=== PATIENT | female | born 1955 | race Caucasian/White ===

== ENCOUNTER 2018-04-13 23:46 | Observation (INO) | payer OTHER, SELFPAY ==
[2018-04-13 23:47] VITALS: BP 141/90; PULSE 73; RESP 15; TEMP 36.9; BMI 35.2
[2018-04-14] VITALS (20 sets, daily range): BP systolic 114–140; BP diastolic 53–77; PULSE 61–85; RESP 13–17; TEMP 36.3–36.8; O2SAT 94–98; BMI 34.9; BMI 35.0
--- NOTE | 2018-04-14 00:26 | ED.VISSUMM ---
- ER Visit Summary Date of Service: 04/14/18 Chief Complaint: Chest pain History of Present Illness: The patient is a 63 F substernal chest pain started while driving at 10 AM. States feels like somebody punched me with a fist. Symptoms been constant the chest, intermittent sharp pain to her back. Denies dyspnea. Nausea vomiting ?2, no hematemesis. States has right arm pain, however states was pulling weeds a couple days ago. History of congestive heart failure. States she has had heart cath ?3, last one was approximately [address] Miller. However states she does not follow with him and does not want to. No history of CT or stents. She was taken off aspirin. History of hypertension and cholesterol. No diabetes. No tobacco history. No family history of CT young age. 2 recent travels in February in March to [place] in [place]. Denies any exertional dyspnea. Pain is a 4 currently. No aspirin at home. Physical Examination: General: Alert and oriented ?3, no acute distress HEENT: Normocephalic, atraumatic. Moist mucosa membranes Neck: supple, nontender. Cardiovascular: Regular rate and rhythm, no murmurs Respiratory: Normal breath sounds, symmetric, no distress Abdomen: Soft, nontender, nondistended Extremities: Nontender, no edema, pulses intact ?4 Neuro: no focal neurological deficits. Test Results: EKG sinus rate of 72, no ST or T-wave changes. Hemoglobin 14.4. Potassium 3.2. Troponin 0 0.015. D-dimer 0.028. Chest x-ray negative. Emergency Department Course and Treatment: Patient presented chest pain EKG normal. Aspirin nitro series given. Cardiac workup negative. D-dimer secondary to recent travel obtain negative. Chest x-ray negative. Given Zofran and Phenergan for nausea symptoms. Potassium was replaced. Nitro paste was placed. Repeat evaluation had minimal pain. ROMÁN risk score is a 1. Heart scores a 4. Heart cath she stated 2 years ago have on records nodes in 2012. With her symptoms however do feel with risk factors benefit from inpatient evaluation. Discuss with hospitalist Dr. Clemons who admitted to PCU for further management. Treatment Plan: [] Disposition: Admission Impression: 1. Acute chest pain 2. Hypokalemia This note was generated with [employer] software. It may contain incorrect words, spelling, and punctuation that were not noted in review of the chart prior to signing ED Disposition - Plan for ED Patient: Disposition: Acute Care Hospital [facility] Chief Complaint: Chest Pain Diagnosis: Acute chest pain, Hypokalemia Referrals: William Feldman MD [Primary Care Provider] -
[2018-04-14] MEDS: Aspirin 81 MG TAB.CHEW 324 MG PO (00:31)
[2018-04-14] MEDS: Ondansetron 4 MG/2 ML Vial IV (00:53)
[2018-04-14 01:03] LABS: Absolute Lymphocyte Count 1.62 X10^3/ul (0.83-4.51); Absolute Neutrophil Count 5.9 X10^3/uL (2.0-7.7); Basophil# 0.05 X10^3/uL; Basophil% 0.6 % (0-1); Eosinophil# 0.19 X10^3/uL; Eosinophils% 2.2 % (0-5); Hematocrit 43.6 % (37-47); Hemoglobin 14.4 g/dl (12.0-15.0); Lymphocyte # 1.62 X10^3/ul (4.0); Mean Corpuscular Hgb 32.3 pg (27.0-32.0); Mean Corpuscular Volume 97.8 fL (81-99); Monocyte# 0.79 X10^3/uL; Monocyte% 9.3 % (0-10); Neutrophil # 5.85 X10^3/uL (2.7-7.7); Neutrophil % 68.8 % (47-70); Platelet Count 233 K/mm3 (150-450); RBC Distribution Width CV 12.9 % (11.6-14.6); Red Blood Count 4.46 M/mm3 (4.2-5.4); White Blood Count 8.5 K/mm3 (4.4-11.0)
[2018-04-14 01:06] LABS: POSITIVE COUNT NO; POSITIVE DIFFERENTIAL NO; POSITIVE MORPHOLOGY NO
[2018-04-14 01:08] LABS: Prothrombin Time (Protime)PT. 12.7 SECONDS (11.7-14.9)
[2018-04-14 01:09] LABS: Partial Thromboplast Time 26.8 Seconds (24.1-36.2)
[2018-04-14 01:16] LABS: D-Dimer Quantitative (DVT/PE) 0.28 FEU/ug/m (0.27-0.49)
[2018-04-14 01:22] LABS: Anion Gap 10 (5-15); BUN 11 mg/dL (7-18); BUN/Creat Ratio 14.7 RATIO (10-20); Calcium,Total 9.2 mg/dL (8.5-10.1); Chloride 107 mmol/L (98-107); Creatinine, Serum 0.75 mg/dL (0.55-1.02); EST Glomerular Filtration Rate 84 mL/min (>60); Est Glom Filt Rate - Afr Amer 102 mL/min (>60); Estimated Creatinine Clearance 68.02 ml/min; Glucose 96 mg/dL (74-106); Potassium 3.2 mmol/L (3.5-5.1); Sodium Level 141 mmol/L (136-145)
[2018-04-14] MEDS: proMETHazine 25 MG/ML Syringe 6.25 MG IV (02:16)
[2018-04-14] MEDS: Nitroglycerin Oint 1 INCH PACKET TRANSDERM. (02:21)
--- NOTE | 2018-04-14 02:21 | PCM.HP.STD ---
Problem List (1) Chest pain Status: Acute Qualifiers: Chest pain type: unspecified Qualified Code(s): R07.9 - Chest pain, unspecified (2) Hypokalemia Status: Acute (3) Heart failure Status: Chronic Qualifiers: Heart failure type: unspecified Heart failure chronicity: unspecified Qualified Code(s): I50.9 - Heart failure, unspecified (4) HTN (hypertension) Status: Chronic Qualifiers: Hypertension type: essential hypertension Qualified Code(s): I10 - Essential (primary) hypertension (5) HLD (hyperlipidemia) Status: Chronic Qualifiers: Hyperlipidemia type: pure hypercholesterolemia Qualified Code(s): E78.00 - Pure hypercholesterolemia, unspecified; E78.0 - Pure hypercholesterolemia (6) GERD (gastroesophageal reflux disease) Status: Chronic Qualifiers: Esophagitis presence: esophagitis presence not specified Qualified Code(s): K21.9 - Gastro-esophageal reflux disease without esophagitis (7) Allergic rhinitis Status: Chronic Qualifiers: Allergic rhinitis trigger: unspecified Allergic rhinitis seasonality: unspecified Qualified Code(s): J30.9 - Allergic rhinitis, unspecified History of Present Illness Date of Admission: 04/14/18 Chief Complaint: Chest pain The patient is a 63 y/o F w/ PMHx: ? CHF Unclear Type, HTN, HLD, Hx TIA, Obesity, Allergic Rhinitis who presents the [facility] ED on 04/14/18 with history of onset RUE discomfort, mild ongoing x 2 days which patient attributed to gardening with onset on morning prior to ED presentation at ~ 10 am, substernal chest pain, described as someone pounding on her chest with radiation to the region between her shoulder blades with associated nausea and emesis as well as dyspnea, noted to be intermittent throughout the day, initially less severe but worsened with rate 8/10 upon ED presentation but improvement following ED NG to /. She noted it initially started while she was driving and required her to extractor puller. In the ED work-up included T 97.4, heart rate 79, BP 123/53, respiratory rate 16, 97% on room air, CBC unremarkable, coags unremarkable, d-dimer 0.28, BMP unremarkable, potassium 3.2, EKG was sinus rhythm with no acute evidence of ischemia, chest x-ray without acute process. The emergency room patient administered aspirin, nitroglycerin sublingual with eventual Nitro-Bid placement, Zofran, potassium supplementation 40 mEq p.o. ?1, Phenergan. Past Medical History Past Medical History (Chronic Problems): Chronic Problems Heart failure (Chronic) HTN (hypertension) (Chronic) HLD (hyperlipidemia) (Chronic) GERD (gastroesophageal reflux disease) (Chronic) Allergic rhinitis (Chronic) Allergies unknown antibiotic Allergy (Uncoded 04/14/18 00:15) Unknown Home Medications: Ambulatory Orders Medication Instructions Recorded Atorvastatin Calcium [Lipitor] 20 mg PO QHS 04/14/18 Cholecalciferol (VIT D3) [Vitamin 1,000 unit PO DAILY 04/14/18 D] Cholecalciferol (VIT D3) [Vitamin 2,000 unit PO MOWEFR 04/14/18 D] Fexofenadine HCl [Chastity Allergy] 90 mg PO QHS 04/14/18 Lansoprazole [Prevacid] 30 mg PO DAILY 04/14/18 Magnesium 30 mg PO 04/14/18 Metoprolol Succinate [Toprol Xl] 50 mg PO QHS 04/14/18 Montelukast [Singulair] 10 mg PO DAILY 04/14/18 Multivitamin [Multiple Vitamins] 1 each PO DAILY 04/14/18 Spironolactone [Aldactone] 25 mg PO DAILY 04/14/18 Surgical History: - - Bilateral knee arthroscopic surgery and meniscal repairs, right ankle tendon repair, bilateral bunionectomy, bilateral plantar fascia surgery. 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 Paternal History Items: Cancer - Father with a history of colon cancer. Review of Systems Constitutional: Reports: Malaise, Weakness, Fatigue. Denies: Chills, Fever, Weight Change HEENT: Denies: Head Aches, Sinus Congestion, Sinus Drainage Cardiovascular: Reports: Chest Pain. Denies: Chest Pressure, Chest Tightness, Light Headedness, Orthopnea, Palpitations, Syncope Respiratory: Reports: Shortness of Breath. Denies: Cough, Shortness of breath at rest, Sputum production Gastrointestinal: Reports: Nausea, Vomiting. Denies: Abdominal Pain Genitourinary: Denies: Dysuria Musculoskeletal: Denies: Joint Pain, Joint Tenderness Skin: Denies: Rash, Wounds Neurological: Denies: Numbness, Tingling, Focal weakness Psychiatric: Denies: Anxiety, Depression, Homicidal Ideations, Suicidal Ideations Hematologic/ Lymphatic: Denies: Easy Bruising, Easy Bleeding VTE Information - Inpt Only VTE Present on Admission: No VTE Mechan Device Prophylaxis: SCD's VTE Pharm Prophylaxis ordered?: Yes Patient Problems: Active and Suspected Problems Acute chest pain (Acute) Hypokalemia (Acute) Chest pain (Acute) Subjective: Seated upright in the ED bed, notes improved chest discomfort since initial ED presentation. Objective: Physical Examination: General: awake, alert, oriented x 3 and cooperative, seated upright in the ED bed, restless, notes improvement of chest discomfort since initial ED presentation. Skin: normal color, turgor, no icterus, cyanosis. HEENT: AT/NC, EOMI, PERRLA, MMM, no carotid bruits or JVD noted. Lungs: CTA bilaterally, moderate effort, mild decrease BL bases, no rales, ronchi or wheezing. Heart: Regular rate and rhythm; no gallop, rub audible. Abdomen: soft, obese, NTTP, ND, normal BS, no HSM. Extremities: no cyanosis, clubbing, or edema. Neurological: patient awake, alert, oriented x 3; cognitive function intact; pupils equally reactive to light and accomodation; cranial nerves II-XII grossly normal, moving all 4 extremities, no focal deficits, strength mildly globally decreased secondary to acute presentation. Psychiatric: affect appears restless, no acute evidence of depressive or anxiety feelings. - Physical Exam Vital Signs Temp Pulse Resp BP Pulse Ox 98.5 F 66 14 114/65 97 04/13/18 23:47 04/14/18 02:11 04/14/18 02:11 04/14/18 02:11 04/14/18 02:11 Oxygen Delivery Method Room Air Weight: 205 lb 0.478 oz Body Mass Index (BMI) 35.2 Laboratory Tests Past 24 Hrs 04/14/18 04/14/18 04/14/18 00:45 00:45 00:45 WBC 8.5 RBC 4.46 Hgb 14.4 Hct 43.6 MCV 97.8 MCH 32.3 H MCHC 33.0 RDW 12.9 RDW Differential 46.0 H Plt Count 233 MPV 10.0 Immature Gran % (Auto) 0.100 Neut % (Auto) 68.8 Lymph % (Auto) 19.0 Starke % (Auto) 9.3 Eos % (Auto) 2.2 Baso % (Auto) 0.6 Absolute Neuts (auto) 5.9 Absolute Lymphs (auto) 1.62 Total Counted Not Reportable PT 12.7 INR 1.0 APTT 26.8 D-Dimer Quant (PE/DVT) 0.28 Sodium 141 Potassium 3.2 L Chloride 107 Carbon Dioxide 24.0 Anion Gap 10 BUN 11 Creatinine 0.75 Estim Creat Clear Calc 68.02 Est GFR (MDRD) Af Amer 102 Est GFR (MDRD) Non-Af 84 BUN/Creatinine Ratio 14.7 Glucose 96 Calcium 9.2 Troponin I < 0.015 Assessment/Plan All Active Problems Acute chest pain (Acute) Hypokalemia (Acute) Chest pain (Acute) The patient is a 63 y/o F w/ PMHx: ? CHF Unclear Type, HTN, HLD, Hx TIA, Obesity, Allergic Rhinitis who presents the [facility] ED on 04/14/18 with history of onset RUE discomfort, mild ongoing x 2 days which patient attributed to gardening with onset on morning prior to ED presentation at ~ 10 am, substernal chest pain, described as someone pounding on her chest with radiation to the region between her shoulder blades with associated nausea and emesis as well as dyspnea, noted to be intermittent throughout the day, initially less severe but worsened with rate 8/10. (1) Chest Pain: EKG in ED with sinus rhythm with no acute evidence of ischemia, CXR w/ no acute process, initial trop normal ?1. Will admit to PCU, place on a monitored bed to assure no acute myocardial infarction with serial cardiac enzymes and EKGs. If cardiac enzyme series remains unremarkable we will plan to pursue cardiac stress testing on 04/15/18. ASA, NG, morphine. FLP in AM. Mag pending. (2) ? CHF, Unclear Type, Reported per Patient: From records 09/2014 ECHO w/ normal LV systolic function, EF 60%, moderately enlarged LA, mildly enlarged RA, mild to moderate MV insufficiency, mild to moderate TV insufficiency, RVSP 45 mmHg, maintained on asa, metoprolol, statin, spironolactone, not on ACEI. (3) Hypertension: Continue home regimen including metoprolol, Spironolactone, PRN hydralazine. (4) Hyperlipidemia: Continue home statin regimen. AM FLP. (5) Hx TIA: Maintain on asa, BP regimen, statin therapy. (6) Obesity: Weight loss and lifestyle changes encouraged. (7) GERD: Famotidine. (8) DVT Prophylaxis: SCDs, lovenox. Code Visit OBSV E&M: 68828 Initial observation care L3
--- NOTE | 2018-04-14 02:42 | NURSING ---
Called [facility] charge nurse, barbara for patient to come to floor.
[2018-04-14 03:59] LABS: Hematocrit 40.9 % (37-47); Hemoglobin 13.8 g/dl (12.0-15.0); Mean Corp Hgb Conc 33.7 g/gl (32-36); Mean Corpuscular Hgb 32.9 pg (27.0-32.0); Mean Corpuscular Volume 97.4 fL (81-99); Mean Platelet Vol. 9.8 fl (6.2-12.0); Platelet Count 223 K/mm3 (150-450); RBC Distribution Width CV 12.5 % (11.6-14.6); RBC Distribution Width SD 43.6 fl (35.1-43.9); White Blood Count 8.4 K/mm3 (4.4-11.0)
[2018-04-14 04:12] LABS: BUN 9 mg/dL (7-18); BUN/Creat Ratio 12.2 RATIO (10-20); Calcium,Total 8.5 mg/dL (8.5-10.1); Chloride 109 mmol/L (98-107); Cholesterol 98 mg/dL (200); Creatinine, Serum 0.74 mg/dL (0.55-1.02); EST Glomerular Filtration Rate 85 mL/min (>60); Est Glom Filt Rate - Afr Amer 103 mL/min (>60); Estimated Creatinine Clearance 68.94 ml/min; Glucose 132 mg/dL (74-106); Potassium 3.4 mmol/L (3.5-5.1); Sodium Level 143 mmol/L (136-145); Triglycerides 39 mg/dL
[2018-04-14 04:13] LABS: Anion Gap 11 (5-15); High Density Lipoprotein 61 mg/dL; Very Low Density Lipoprotein 8 mg/dL (5-40)
[2018-04-14 04:22] LABS: Scan Indicated on CBC? Y/N NO
[2018-04-14] MEDS: Famotidine 20 MG Tablet PO ×2 (10:31→21:47)
[2018-04-14] MEDS: Montelukast 10 MG Tablet PO (10:31)
[2018-04-14] MEDS: Acetaminophen 325 MG Tablet 650 MG PO (10:31)
[2018-04-14] MEDS: Spironolactone 25 MG Tablet PO (10:31)
[2018-04-14] MEDS: 0.9% NaCl Peripheral Flush Adult/Peds IV (18:53)
[2018-04-14] MEDS: Loratadine 10 MG Tablet PO (21:47)
[2018-04-14] MEDS: Atorvastatin Calcium 20 MG Tablet PO (21:47)
[2018-04-14] MEDS: Metoprolol(XL)Succ 50 MG Tablet PO (21:47)
--- NOTE | 2018-04-14 23:38 | NURSING ---
Attempted 2 times to start new IV in Pt. Unsuccessful both times. Pt became tearful. Other IV flushed with no difficulty, but pt states it is tender. At this point, she does not want any other people to stick her.
[2018-04-14] MEDS: 0.9% Normal Saline 1,000 ML 100 ML IV (23:45)
[2018-04-15 03:15] VITALS: PULSE 85
[2018-04-15 04:00] VITALS: BP 102/58; PULSE 62; RESP 16; TEMP 36.4; O2SAT 97
[2018-04-15] MEDS: Acetaminophen 325 MG Tablet 650 MG PO (04:26)
[2018-04-15] MEDS: 0.9% NaCl Peripheral Flush Adult/Peds IV (04:26)
[2018-04-15 06:24] LABS: Absolute Lymphocyte Count 1.78 X10^3/ul (0.83-4.51); Absolute Neutrophil Count 3.1 X10^3/uL (2.0-7.7); Basophil# 0.04 X10^3/uL; Basophil% 0.7 % (0-1); Eosinophil# 0.17 X10^3/uL; Hematocrit 44.1 % (37-47); Hemoglobin 14.6 g/dl (12.0-15.0); Lymphocyte # 1.78 X10^3/ul (4.0); Lymphocyte % 31.1 % (19-41); Mean Corp Hgb Conc 33.1 g/gl (32-36); Mean Corpuscular Hgb 32.4 pg (27.0-32.0); Mean Platelet Vol. 9.7 fl (6.2-12.0); Monocyte# 0.62 X10^3/uL; Monocyte% 10.8 % (0-10); Neutrophil # 3.11 X10^3/uL (2.7-7.7); Neutrophil % 54.2 % (47-70); Platelet Count 215 K/mm3 (150-450); RBC Distribution Width CV 12.9 % (11.6-14.6); RBC Distribution Width SD 45.8 fl (35.1-43.9); White Blood Count 5.7 K/mm3 (4.4-11.0)
[2018-04-15 06:27] LABS: Prothrombin Time (Protime)PT. 12.8 SECONDS (11.7-14.9)
[2018-04-15 06:28] LABS: Partial Thromboplast Time 25.5 Seconds (24.1-36.2)
[2018-04-15 06:32] LABS: POSITIVE COUNT NO; POSITIVE DIFFERENTIAL NO; POSITIVE MORPHOLOGY NO
[2018-04-15 06:48] VITALS: O2SAT 96
[2018-04-15 06:56] LABS: Anion Gap 10 (5-15); BUN 7 mg/dL (7-18); BUN/Creat Ratio 10.7 RATIO (10-20); Calcium,Total 8.7 mg/dL (8.5-10.1); Chloride 110 mmol/L (98-107); Creatinine, Serum 0.65 mg/dL (0.55-1.02); EST Glomerular Filtration Rate 98 mL/min (>60); Est Glom Filt Rate - Afr Amer 119 mL/min (>60); Estimated Creatinine Clearance 78.49 ml/min; Glucose 87 mg/dL (74-106); Potassium 4.1 mmol/L (3.5-5.1); Sodium Level 144 mmol/L (136-145)
[2018-04-15] MEDS: Montelukast 10 MG Tablet PO (08:37)
[2018-04-15] MEDS: Famotidine 20 MG Tablet PO (08:37)
[2018-04-15] MEDS: Spironolactone 25 MG Tablet PO (08:37)
--- NOTE | 2018-04-15 08:43 | STRESSREP ---
Stress Test Report Date: 04/15/2018 Procedure: Exercise tolerance test/imaging study Indications: Chest pain Consent: Per the patient Procedure: The patient exercised on a Anderson protocol for 6 minutes completing Stage II achieving a peak heart rate of 130 bpm (81 % predicted maximal heart rate) with a peak blood pressure 148/88 mmHg and a peak MET capacity of 7 METs. The baseline ECG demonstrated normal sinus rhythm. The peak exercise ECG demonstrated somatic/motion artifact with no obvious ECG changes at the heart rate achieved. There was a rare PVC during recovery. The functional capacity was considered average. There was no complaint of chest discomfort during exercise or recovery. The examination was discontinued secondary to dyspnea. Impression: 1. Technically inadequate (percent predicted maximal heart rate less than 85%) exercise tolerance test 2. Peak exercise ECG with somatic/motion artifact with no obvious ECG changes at the heart rate achieved 3. There was a rare PVC during recovery. 4. Nuclear images pending Myocardial perfusion imaging study: Technique: The patient was injected with 14.5 mCi of technetium 99m Cardiolite and subsequently rest SPECT Cardiolite nuclear imaging was obtained in the horizontal long, vertical long, and short axis views. The patient exercised on a Anderson protocol for 6 minutes completing Stage II achieving a peak heart rate of 130 bpm (81 % predicted maximal heart rate) with a peak blood pressure 148/88 mmHg and a peak MET capacity of 7 METs. The patient was injected with 43.8 mCi of technetium 99m Cardiolite and subsequently stress SPECT Cardiolite nuclear imaging was obtained in the horizontal long, vertical long, and short axis views. A gated Cardiolite study at peak stress was obtained. Interpretation: Rest and stress SPECT Cardiolite nuclear imaging status post realignment, normalization, and attenuation correction, demonstrates the appearance of a small area of diminished tracer uptake near the apical segments without significant change between rest and stress. There is end systolic thickening and brightening. The gated Cardiolite study demonstrates myocardial thickening and inward wall motion. The reported LVEF is 64 %. Impression: 1. Rest and stress SPECT Cardiolite nuclear imaging demonstrate myocardial perfusion changes appearing compatible with physiologic apical thinning with no myocardial perfusion changes considered diagnostic for associated stress-induced myocardial ischemia at the heart rate achieved. 2. The gated Cardiolite study reports an LVEF of 64 %. This note was generated with [email or web address] software. It may contain incorrect words, spelling, and punctuation that were not noted in checking the note before signing.
--- NOTE | 2018-04-15 08:48 | STRESSREP_ITS ---
Stress Test Report Date: 04/15/2018 Procedure: Exercise tolerance test/imaging study Indications: Chest pain Consent: Per the patient Procedure: The patient exercised on a Anderson protocol for 6 minutes completing Stage II achieving a peak heart rate of 130 bpm (81 % predicted maximal heart rate) with a peak blood pressure 148/88 mmHg and a peak MET capacity of 7 METs. The baseline ECG demonstrated normal sinus rhythm. The peak exercise ECG demonstrated somatic/motion artifact with no obvious ECG changes at the heart rate achieved. There was a rare PVC during recovery. The functional capacity was considered average. There was no complaint of chest discomfort during exercise or recovery. The examination was discontinued secondary to dyspnea. Impression: 1. Technically inadequate (percent predicted maximal heart rate less than 85%) exercise tolerance test 2. Peak exercise ECG with somatic/motion artifact with no obvious ECG changes at the heart rate achieved 3. There was a rare PVC during recovery. 4. Nuclear images pending Myocardial perfusion imaging study: Technique: The patient was injected with 14.5 mCi of technetium 99m Cardiolite and subsequently rest SPECT Cardiolite nuclear imaging was obtained in the horizontal long, vertical long, and short axis views. The patient exercised on a Anderson protocol for 6 minutes completing Stage II achieving a peak heart rate of 130 bpm (81 % predicted maximal heart rate) with a peak blood pressure 148/ 88 mmHg and a peak MET capacity of 7 METs. The patient was injected with 43.8 mCi of technetium 99m Cardiolite and subsequently stress SPECT Cardiolite nuclear imaging was obtained in the horizontal long, vertical long, and short axis views. A gated Cardiolite study at peak stress was obtained. Interpretation: Rest and stress SPECT Cardiolite nuclear imaging status post realignment, normalization, and attenuation correction, demonstrates the appearance of a small area of diminished tracer uptake near the apical segments without significant change between rest and stress. There is end systolic thickening and brightening. The gated Cardiolite study demonstrates myocardial thickening and inward wall motion. The reported LVEF is 64 %. Impression: 1. Rest and stress SPECT Cardiolite nuclear imaging demonstrate myocardial perfusion changes appearing compatible with physiologic apical thinning with no myocardial perfusion changes considered diagnostic for associated stress- induced myocardial ischemia at the heart rate achieved. 2. The gated Cardiolite study reports an LVEF of 64 %. This note was generated with [employer] software. It may contain incorrect words, spelling, and punctuation that were not noted in checking the note before signing.
--- NOTE | 2018-04-15 08:53 | PCM.DC ---
- Discharge Diagnoses Current Active Problems: Current Active and Chronic Problems Acute chest pain (Acute) Hypokalemia (Acute) Chest pain (Acute) Heart failure (Chronic) HTN (hypertension) (Chronic) HLD (hyperlipidemia) (Chronic) GERD (gastroesophageal reflux disease) (Chronic) Allergic rhinitis (Chronic) You will use the following diet at home:: Cardiac Your food should be the consistency of: Regular Discharge Activity: Return to Normal Activity Weight Bearing Status: Full weight bearing Call your doctor if you observe: Fever of 101 or Higher, Shortness of breath, Dizziness, Fainting spells, Chest pain, Increased palpitations (irregular heartbeat), Uncontrolled pain Allergies/Adverse Reactions: Allergies unknown antibiotic Allergy (Uncoded 04/14/18 00:15) Unknown Medications to take at Discharge Atorvastatin Calcium [Lipitor] 20 mg PO QHS 04/14/18 Cholecalciferol (VIT D3) [Vitamin D3] 1,000 unit PO DAILY 04/14/18 Cholecalciferol (VIT D3) [Vitamin D3] 2,000 unit PO MOWEFR 04/14/18 Fexofenadine HCl [Chastity Allergy] 90 mg PO QHS 04/14/18 Lansoprazole [Prevacid] 30 mg PO DAILY 04/14/18 Magnesium 30 mg PO 04/14/18 Metoprolol Succinate [Toprol Xl] 50 mg PO QHS 04/14/18 Montelukast [Singulair] 10 mg PO DAILY 04/14/18 Multivitamin [Multiple Vitamins] 1 each PO DAILY 04/14/18 Spironolactone [Aldactone] 25 mg PO DAILY 04/14/18 Primary Care Physician: William Feldman MD [Primary Care Provider] - Please follow up with your Primary Care Physician in: 1-2 weeks. Test Results: Test results from this visit will be discussed in further detail at your follow-up appointment, if applicable.
[2018-04-15 08:54] VITALS: PULSE 60
[2018-04-15 09:00] VITALS: BP 123/78; PULSE 67; RESP 18; TEMP 36.9; O2SAT 97
--- NOTE | 2018-04-15 10:55 | PCM.DC.SUM ---
Discharge Date and Diagnosis - Problem List Patient Problems: Active and Suspected Problems Acute chest pain (Acute) Hypokalemia (Acute) Chest pain (Acute) Date of Admission: 04/14/18 Date of Discharge: 04/15/18 - Primary Discharge Diagnosis Active and Suspected Problems Chest pain, ACS ruled out. - Secondary Discharge Diagnosis Chronic Problems Heart failure (Chronic) HTN (hypertension) (Chronic) HLD (hyperlipidemia) (Chronic) GERD (gastroesophageal reflux disease) (Chronic) Allergic rhinitis (Chronic) Hospital Course and Treatment Imaging Results: 04/15/18 05:55 Nuclear Stress Test - Treadmil [NM] Routine Clinical Impression(s) from Imaging Studies Chest X-Ray 04/14/18 02:00 IMPRESSION: No acute cardiopulmonary disease. Electronically Signed: Bruce Evans MD at 2:54 EDT , Service support , Procedures: EKG, Stress test Summary of Care Provided: Patient seen and examined on the day of discharge and appeared to be stable for discharge home. She denies any more chest pain, no other symptoms. Her vital signs are stable. - Physical Exam General: Alert, Oriented x3, Cooperative, No apparent distress. HEENT: Atraumatic, PERRLA, EOMI. Neck: Supple, No JVD, Negative Carotid Bruits, Trachea Midline, Thyroid Normal. Lungs: Clear to auscultation, Normal air movement, No rhonchi, No wheeze, No rales. Cardiovascular: Regular rate, Regular Rhythm, Normal S1, Normal S2, PMI Normal. Abdomen: Bowel Sounds Present, Soft, Non Tender, Non-Distended, No Hepato-splenomegaly. Extremities: No clubbing, No cyanosis, No edema Skin: No rashes, No breakdown Neurological: Neuro grossly intact Vital Signs are stable. Hospital course: The patient is a 63 year old F admitted because of chest pain for evaluation. Her EKG revealed normal sinus rhythm without evidence of acute ischemic changes. Chest x-ray showed no acute findings. Cardiac enzymes were negative ?2. Her routine blood work was remarkable for mild hypokalemia and her potassium was 3.4, was replaced and corrected. Her vital signs were stable throughout admission. She underwent nuclear stress test that revealed no evidence of myocardial perfusion changes consider diagnostic for associated stress-induced myocardial ischemia and ejection fraction was 64%. ACS ruled out. Her symptoms could be due to GERD. Patient discharged home in a stable medical condition, continued on her home medications including Prevacid, recommended to follow-up with PCP in 1-2 weeks. Discharge Activity: Return to Normal Activity Weight Bearing Status: Full weight bearing Call your doctor if you observe: Fever of 101 or Higher, Shortness of breath, Dizziness, Fainting spells, Chest pain, Increased palpitations (irregular heartbeat), Uncontrolled pain Home Medications: Medications to take at Discharge Atorvastatin Calcium [Lipitor] 20 mg PO QHS 04/14/18 Cholecalciferol (VIT D3) [Vitamin D3] 1,000 unit PO DAILY 04/14/18 Cholecalciferol (VIT D3) [Vitamin D3] 2,000 unit PO MOWEFR 04/14/18 Fexofenadine HCl [Chastity Allergy] 90 mg PO QHS 04/14/18 Lansoprazole [Prevacid] 30 mg PO DAILY 04/14/18 Magnesium 30 mg PO 04/14/18 Metoprolol Succinate [Toprol Xl] 50 mg PO QHS 04/14/18 Montelukast [Singulair] 10 mg PO DAILY 04/14/18 Multivitamin [Multiple Vitamins] 1 each PO DAILY 04/14/18 Spironolactone [Aldactone] 25 mg PO DAILY 04/14/18 Primary Care Physician: Nanda Etienne MD [Primary Care Provider] - Please follow up with your Primary Care Physician in: 1-2 weeks. Please Follow Up With: nanda etienne Disposition: Home Minutes spent on discharge:: 25 Patient Condition:: Stable Medical Necessity - Tobacco Use Smoking Status: Never smoker Tobacco Use: Non-smoker Meaningful Use Info Meaningful Use Diagnoses (Choose all that apply): None applicable Code Visit OBSV E&M: 54548 Observation care discharge
== END 2018-04-15 08:53 | disposition home or self-care (01) ==
LOC: ED 04-14 02:31 → PCU 04-14 02:41
PROVIDERS: Admitting Provider Family Medicine; Emergency Provider Emergency Medicine; Family Provider Family Medicine; PCP Family Medicine; Visit Provider Hospitalist
DX: R07.89 Other chest pain (principal); I11.0 Hypertensive heart disease with heart failure; I50.9 Heart failure, unspecified; E87.6 Hypokalemia; E78.5 Hyperlipidemia, unspecified; K21.9 Gastro-esophageal reflux disease without esophagitis; E66.9 Obesity, unspecified; Z68.35 Body mass index [BMI] 35.0-35.9, adult; Z71.3 Dietary counseling and surveillance; Z79.899 Other long term (current) drug therapy; Z86.73 Personal history of transient ischemic attack (TIA), and cerebral infarction without residual deficits
CPT/HCPCS: 36415; 71046; 78452; 80048; 80061; 83735; 84484; 85025; 85027; 85379; 85610; 85730; 93005; 93017; 96361; 96374; 96375; 99218; 99282; A9500; J7030; A4216; G0378; J2405

== ENCOUNTER → 2018-04-29 10:02 | Outpatient (CLI) | payer OTHER, SELFPAY ==
[2018-04-29 12:25] LABS: Anion Gap 12 (5-15); BUN 17 mg/dL (7-18); BUN/Creat Ratio 20.8 RATIO (10-20); Calcium,Total 9.8 mg/dL (8.5-10.1); Chloride 102 mmol/L (98-107); Creatinine, Serum 0.82 mg/dL (0.55-1.02); EST Glomerular Filtration Rate 76 mL/min (>60); Est Glom Filt Rate - Afr Amer 91 mL/min (>60); Glucose 89 mg/dL (74-106); Potassium 4.1 mmol/L (3.5-5.1); Sodium Level 140 mmol/L (136-145)
[2018-04-29 12:48] LABS: Microalbumin,Random Urine 5.2 mg/L (NO RANGE EST.); Microalbumin:Creatinine Ratio 8.3 mg/g CRE (<30 mg/g CRE)
[2018-04-29 12:58] LABS: Vitamin D,25 Hydroxy 28.8 ng/mL (29.95-100.01)
[2018-04-29 13:14] LABS: Osmolality, Serum 286 mOsm/KG (280-301)
== END ==
PROVIDERS: Family Provider Family Medicine; PCP Family Medicine; Visit Provider Family Medicine
DX: I10 Essential (primary) hypertension (principal); E55.9 Vitamin D deficiency, unspecified; E87.6 Hypokalemia
CPT/HCPCS: 36415; 80048; 82043; 82306; 82570; 83930

== ENCOUNTER → 2018-05-08 | Outpatient (CLI) | payer OTHER, SELFPAY ==
[2018-05-08 16:22] LABS: Vitamin D,25 Hydroxy 33.3 ng/mL (29.95-100.01)
[2018-05-12 11:51] LABS: Anion Gap 8 (5-15); BUN 10 mg/dL (7-18); Chloride 103 mmol/L (98-107); Creatinine, Serum 0.77 mg/dL (0.55-1.02); EST Glomerular Filtration Rate 81 mL/min (>60); Est Glom Filt Rate - Afr Amer 98 mL/min (>60); Glucose 97 mg/dL (74-106); Potassium 4.3 mmol/L (3.5-5.1); Sodium Level 137 mmol/L (136-145)
== END | disposition home or self-care (01) ==
LOC: MFPLAB 14:43
PROVIDERS: Family Provider Family Medicine; PCP Family Medicine; Visit Provider Family Medicine
DX: R69 Illness, unspecified (principal)
CPT/HCPCS: 36415; 80048; 82306; 83735

== ENCOUNTER → 2018-05-26 08:50 | Outpatient (CLI) | payer OTHER, SELFPAY ==
--- NOTE | 2018-05-26 08:56 | BI_ITS ---
MAMMOGRAPHY - UNILATERAL DIAGNOSTIC: LEFT BREAST REASON FOR EXAM: Female, 63 years old. Soreness of the left breast. PERTINENT HISTORY: Sister with breast cancer. TECHNIQUE: Digital unilateral breast tasia (3D mammographic acquisition) in the CC and MLO projections. 2-D mediolateral oblique (MLO) and craniocaudad (CC) views of both breasts were obtained. CAD: Full Field Digital Mammography with Computer Added Detection was performed. COMPARISON: Comparison is made with prior study dated July 19, 2017. FINDINGS: Breast Composition: The breasts are heterogeneously dense, which may obscure small masses. There are no dominant masses or suspicious calcifications. No other significant abnormalities are identified. There has been no significant change since the prior study. BI/DIAG MAMM W/CAD, UNILAT IMPRESSION: Stable unilateral diagnostic mammogram. With the patient's history of soreness of the left breast, correlation with ultrasound is recommended. ASSESSMENT CATEGORY: BIRADS Category 0: Incomplete. Need additional imaging evaluation. A letter regarding these results will be sent to the patient by the facility within 30 days. Approximately 10% of breast cancers are not detected by mammography. A normal mammogram should not delay biopsy of a clinically suspicious abnormality. Electronically Signed: Jose Luis Li MD at 15:29 EDT Tel [phone], Service support ,
--- NOTE | 2018-05-26 08:57 | US_ITS ---
STUDY: ULTRASOUND BREAST - LEFT REASON FOR EXAM: Female, 63 years old. Pain in the left breast. TECHNIQUE: Axial and longitudinal images of the LEFT breast were performed with a high resolution ultrasound transducer. COMPARISON: Comparison is made with prior mammogram done earlier in the day. FINDINGS: LEFT Breast: The upper half of the left breast was examined by ultrasound. There is homogeneous fibroglandular tissue. No solid or cystic mass lesion is seen. US/Breast Limited Unilateral IMPRESSION: Unremarkable sonographic examination of the left breast. ASSESSMENT CATEGORY: BIRADS Category 1: Negative. A letter regarding these results will be sent to the patient by the facility within 30 days. Electronically Signed: Jose Luis Li MD at 14:44 EDT Tel [phone], Service support ,
== END ==
PROVIDERS: Family Provider Family Medicine; PCP Family Medicine; Visit Provider Obstetrics & Gynecology
DX: N64.4 Mastodynia (principal)
CPT/HCPCS: 76642; 77061; 77065; G0279

== ENCOUNTER → 2018-07-30 13:40 | Outpatient (CLI) | payer OTHER, SELFPAY ==
[2018-08-06 11:53] LABS: HPV Reflexed? NOT INDICATED
--- OUTSIDE RECORDS SUMMARY | 2018-10-31 20:23 | XMS RPT_ITS ---
:1955 Author Organization OHIP Support Name Relationship Address Phone [facility] Unavailable [address] + [place] [address] BRIAN PATEL Unavailable [address] + [place] [address] [facility] [facility] Unavailable [address] + [place] [address] BRIAN PATEL Unavailable [address] + [place] [address] [facility] Unavailable [address] + [place] [address] BRIAN PATEL Unavailable [address] + [place] [address] [facility] Unavailable [address] + [place] [address] BRIAN PATEL Unavailable [address] + [place] [address] [facility] Unavailable [address] + [place] [address] BRIAN PATEL Unavailable [address] + [place] [address] [facility] Unavailable [address] + [place] [address] BRIAN PATEL Unavailable [address] + [place] [address] [facility] Unavailable [address] + [place] [address] BRIAN PATEL Unavailable [address] + [place] [address] [facility] Unavailable [address] + [place] [address] BRIAN PATEL Unavailable [address] + [place] [address] [facility] Unavailable [address] + [place] [address] BRIAN PATEL Unavailable [address] + [place] [address] Care Team Providers Name Role Phone Ivana Rubalcava Attending Unavailable Ivana Rubalcava Attending Unavailable Feldman, Nanda Primary Care Unavailable Feldman, Nanda Primary Care Unavailable White, Blaire Admitting Unavailable Ashelfah, Ghasem Attending Unavailable White, Blaire Admitting Unavailable White, Blaire Attending Unavailable Feldman, Nanda Primary Care Unavailable White, Blaire Consulting Unavailable White, Blaire Admitting Unavailable Ashelfah, Ghasem Attending Unavailable Feldman, Nanda Primary Care Unavailable Ashelfah, Ghasem Consulting Unavailable Feldman, Nanda Attending Unavailable Feldman, Nanda Primary Care Unavailable Feldman, Nanda Attending Unavailable Feldman, Nanda Primary Care Unavailable Mayco Phelps Attending Unavailable Ashelfah, Ghasem Referring Unavailable Ivana Rubalcava Attending Unavailable Feldman, Nanda Primary Care Unavailable PROBLEMS PROBLEMS DATE TYPE CONDITION / CODE ATTENDING STATUS SOURCE 07/30/2018 Unknown Z12.4 - Encounter Ivana Rubalcava Active [place] for screening for [facility] malignant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 / Z12.4(ICD-10) 05/26/2018 Unknown N64.4 - Ivana Rubalcava Active [place] Mastodynia / Community N64.4(ICD-10) Hospital Repository 05/13/2018 Unknown R07.9 - Chest Mayco Phelps Active [place] pain, unspecified Community / R07.9(ICD-10) Hospital Repository PROCEDURES PROCEDURES No Procedure Records FoundRESULTS RESULTS SCREENING MAMM (CAD), Observed: 08/27/2018 Status: F Source: [place] BILAT 3:12 PM [facility] REPOSITORY [facility] Imaging Services [address] [place] [address] SCREENING MAMM (CAD), BILAT MR#: [id number] Acct: [id number] Name: CAROLINE PATEL Rep #: [id number] : 1955 F 63 From: Jose Luis Li MD PCP: Nanda Feldman MD Status: REG CLI Study: SCREENING MAMM (CAD), BILAT Date of Exam: 08/27/18 Exam# [id number] Ordering Dr: Ivana Rubalcava MD MAMMOGRAPHY - BILATERAL SCREENING REASON FOR EXAM: Female, 63 years old. Routine annual screening examination. PERTINENT HISTORY: Sister with breast cancer. Grandmother with breast cancer. TECHNIQUE: Digital bilateral breast tasia (3D mammographic acquisition) in the CC and MLO projections. 2-D mediolateral oblique (MLO) and craniocaudad (CC) views of both breasts were obtained. CAD: Full Field Digital Mammography with Computer Added Detection was performed. COMPARISON: Comparison is made with prior study dated July 19, 2017 and May 30, 2016. FINDINGS: Breast Composition: The breasts are heterogeneously dense, which may obscure small masses. There are no dominant masses or suspicious calcifications. No other significant abnormalities are identified. There has been no significant change since the prior study. BI/SCREENING MAMM (CAD), BILAT IMPRESSION: Stable bilateral screening mammogram. Yearly follow-up mammogram recommended. (A) ASSESSMENT CATEGORY: BIRADS Category 1: Negative. A letter regarding these results will be sent to the patient by the facility within 30 days. Approximately 10% of breast cancers are not detected by mammography. A normal mammogram should not delay biopsy of a clinically suspicious abnormality. [id number] Electronically Signed: Jose Luis Li MD at 11:03 EST Tel [phone], Service support , CC: Ivana Rubalcava MD; Nanda Feldman MD Placement Assistant: Signed PAP I-G W/RFX HRHPV Collected: 07/30/2018 Status: F Source: [place] 9:30 AM [facility] REPOSITORY Order Comment: CYTOLOGY INFORMATION: - CLINICAL INFORMATION: POSTMENOPAUSAL - DATE LMP/MENOPAUSE: - COLLECTION VIAL: Thin Prep Vial - DIE FORGER SOURCE: CERVICAL/ENDOCERVICAL - COLLECTION TECHNIQUE: BRUSH/SPATULA Specimen Comment: [id number] Specimen Comment: Source.............Cervix;Endocervix Specimen Comment: Other..............Post Menopausal Specimen Comment: No. of containers..01 ThinPrep Vial TYPE CODE TESTS RESULT OUT OF RANGE REFERENCE UNITS LAB L7400.0800 . Normal DIAGN Comment Result Comment: NEGATIVE FOR INTRAEPITHELIAL LESION AND MALIGNANCY. THIS SPECIMEN WAS RESCREENED PART OF OUR SOLAR SALES REPRESENTATIVE AND ASSESSOR PROGRAM. LAB L7400.0900 . Normal ADEQ Comment Result Comment: Satisfactory for evaluation. Endocervical and/or squamous metaplastic cells (endocervical component) are present. LAB L7400.1400 . Normal PERFORM Comment Result Comment: Yue Pacheco, Skylights Assembler (ASCP) LAB L7400.1500 . Normal QC Comment REV Result Comment: Glenys Saucedo, Supervisory Skylights Assembler (ASCP) LAB L7400.2575 . Normal TEST METHOD Comment Result Comment: This liquid based ThinPrep(R) pap test was screened with the use of an image guided system. LAB L7400.2600 . Normal . COMM LAB L7400.2700 . Normal PAPSMR Comment Result Comment: The Pap smear is a screening test designed to aid in the detection of premalignant and malignant conditions of the uterine cervix. It is not a diagnostic procedure and should not be used as the sole means of detecting cervical cancer. Both false-positive and false-negative reports do occur. LAB L7400.2800 . Normal HPV RFLX Comment Result Comment: The HPV DNA reflex criteria were not met with this specimen result therefore, no HPV testing was performed. [facility]formed at: [facility] [address] [email or web address] [id number] Building Appraiser: Felicia Arrington MD, Phone: [phone] Performed By: #### L7400.0350 #### [facility] (refer to report for specific site) refer to report for address and phone number BREAST LIMITED Observed: 05/26/2018 Status: F Source: [place] UNILATERAL 8:57 AM [facility] REPOSITORY [facility] Imaging Services [address] [place] [address] Breast Limited Unilateral MR#: [id number] Acct: [id number] Name: CAROLINE PATEL Rep #: [id number] : 1955 F 63 From: Jose Luis Li MD PCP: Nanda Feldman MD Status: REG CLI Study: Breast Limited Unilateral Date of Exam: 05/26/18 Exam# [id number] Ordering Dr: Ivana Rubalcava MD STUDY: ULTRASOUND BREAST - LEFT REASON FOR EXAM: Female, 63 years old. Pain in the left breast. TECHNIQUE: Axial and longitudinal images of the LEFT breast were performed with a high resolution ultrasound transducer. COMPARISON: Comparison is made with prior mammogram done earlier in the day. FINDINGS: LEFT Breast: The upper half of the left breast was examined by ultrasound. There is homogeneous fibroglandular tissue. No solid or cystic mass lesion is seen. US/Breast Limited Unilateral IMPRESSION: Unremarkable sonographic examination of the left breast. ASSESSMENT CATEGORY: BIRADS Category 1: Negative. A letter regarding these results will be sent to the patient by the facility within 30 days. Electronically Signed: Jose Luis Li MD at 14:44 EDT Tel [phone], Service support , CC: Ivana Rubalcava MD; Nanda Feldman MD Placement Assistant: Signed DIAG MAMM W/CAD, Observed: 05/26/2018 Status: F Source: [place] UNILAT 8:57 AM [facility] REPOSITORY [facility] Imaging Services [address] [place] [address] DIAG MAMM W/CAD, UNILAT MR#: [id number] Acct: [id number] Name: CAROLINE PATEL Rep #: [id number] : 1955 F 63 From: Jose Luis Li MD PCP: Gaston ANTHONY,Nanda Status: REG CLI Study: DIAG MAMM W/CAD, UNILAT Date of Exam: 05/26/18 Exam# [id number] Ordering Dr: Ivana Rubalcava MD MAMMOGRAPHY - UNILATERAL DIAGNOSTIC: LEFT BREAST REASON FOR EXAM: Female, 63 years old. Soreness of the left breast. PERTINENT HISTORY: Sister with breast cancer. TECHNIQUE: Digital unilateral breast tasia (3D mammographic acquisition) in the CC and MLO projections. 2-D mediolateral oblique (MLO) and craniocaudad (CC) views of both breasts were obtained. CAD: Full Field Digital Mammography with Computer Added Detection was performed. COMPARISON: Comparison is made with prior study dated July 19, 2017. FINDINGS: Breast Composition: The breasts are heterogeneously dense, which may obscure small masses. There are no dominant masses or suspicious calcifications. No other significant abnormalities are identified. There has been no significant change since the prior study. BI/DIAG MAMM W/CAD, UNILAT IMPRESSION: Stable unilateral diagnostic mammogram. With the patient's history of soreness of the left breast, correlation with ultrasound is recommended. ASSESSMENT CATEGORY: BIRADS Category 0: Incomplete. Need additional imaging evaluation. A letter regarding these results will be sent to the patient by the facility within 30 days. Approximately 10% of breast cancers are not detected by mammography. A normal mammogram should not delay biopsy of a clinically suspicious abnormality. Electronically Signed: Jose Luis Li MD at 15:29 EDT Tel [phone], Service support , CC: Ivana Rubalcava MD; Nanda Feldman MD Placement Assistant: Signed VITAMIN D,25 HYDROXY Collected: 05/08/2018 Status: F Source: [place] 12:00 AM [facility] REPOSITORY TYPE CODE TESTS RESULT OUT OF RANGE REFERENCE UNITS LAB L506.1000 29.95-100.01 ng/mL Normal Vitamin D 33.3 25-OH Result Comment: Vitamin D 25(OH) Status Range Deficiency <20 ng/mL (50nmol/L) Insuffciency 20 - 30 ng/mL (50 - 75 nmol/L) Sufficiency 30 - 100 ng/mL (75 - 250 nmol/L) Toxicity >100 ng/mL (>250 nmol/L) Performed By: #### L506.1000 #### [facility] [address] [place], [address] BASIC METABOLIC Collected: 05/08/2018 Status: F Source: [place] PROFILE (BMP) 12:00 AM [facility] REPOSITORY Order Comment: PLEASE ADD THE BMP, MG TO LABS DRAWN 05/08/18 0927:CC35 TYPE CODE TESTS RESULT OUT OF RANGE REFERENCE UNITS LAB L501.0100 74-106 mg/dL Normal GLU 97 Result Comment: Please note revised GLUCOSE reference range effective 2017. LAB L501.1000 7-18 mg/dL Normal BUN 10 LAB L501.1100 0.55-1.02 mg/dL Normal CREAT,SERUM 0.77 Result Comment: The validity of the calculated GFR AND GFRAA in patients over 70 years has not been determined. Clinical correlation is essential. LAB L501.1110 >60 mL/min Normal EST GFR 81 Result Comment: Non- GFR Calc LAB L501.1115 >60 mL/min Normal EST GFR - AA 98 Result Comment: GFR Calc LAB L501.1300 10-20 RATIO Normal BUN/CRE 13.0 LAB L501.2200 8.5-10.1 mg/dL CA Normal 9.0 LAB L501.5300 136-145 mmol/L NA Normal 137 LAB L501.5600 3.5-5.1 mmol/L K Normal 4.3 LAB L501.5900 98-107 mmol/L CL Normal 103 LAB L501.6100 21.0-32.0 mmol/L Normal CO2 26.0 LAB L501.6200 5-15 Normal GAP 8 Performed By: #### L500.2500, L501.5200 #### [facility] [address] [place], [address] MAGNESIUM Collected: 05/08/2018 Status: F Source: [place] 12:00 AM [facility] REPOSITORY Order Comment: PLEASE ADD THE BMP, MG TO LABS DRAWN 05/08/18 0927:CC35 TYPE CODE TESTS RESULT OUT OF RANGE REFERENCE UNITS LAB L501.5200 1.6-2.6 mg/dL Normal MG 2.0 Performed By: #### L500.2500, L501.5200 #### [facility] [address] [place], [address] BASIC METABOLIC Collected: 04/29/2018 Status: F Source: [place] PROFILE (BMP) 10:03 AM [facility] REPOSITORY Order Comment: Order Date: 04/29/18 Order Info: 0667-1 - BMP Comments: standing orderstanding order TYPE CODE TESTS RESULT OUT OF RANGE REFERENCE UNITS LAB L501.0100 74-106 mg/dL Normal GLU 89 Result Comment: Please note revised GLUCOSE reference range effective 2017. LAB L501.1000 7-18 mg/dL Normal BUN 17 LAB L501.1100 0.55-1.02 mg/dL Normal CREAT,SERUM 0.82 Result Comment: The validity of the calculated GFR AND GFRAA in patients over 70 years has not been determined. Clinical correlation is essential. LAB L501.1110 >60 mL/min Normal EST GFR 76 Result Comment: Non- GFR Calc LAB L501.1115 >60 mL/min Normal EST GFR - AA 91 Result Comment: GFR Calc LAB L501.1300 10-20 RATIO High BUN/CRE 20.8 LAB L501.2200 8.5-10.1 mg/dL CA Normal 9.8 LAB L501.5300 136-145 mmol/L NA Normal 140 LAB L501.5600 3.5-5.1 mmol/L K Normal 4.1 LAB L501.5900 98-107 mmol/L CL Normal 102 LAB L501.6100 21.0-32.0 mmol/L Normal CO2 26.0 LAB L501.6200 5-15 Normal GAP 12 Performed By: #### L500.2500 #### [facility] [address] [place], [address] MICROALB:CREAT Collected: 04/29/2018 Status: F Source: [place] RATIO,RANDOM UR 10:03 [facility] REPOSITORY Order Comment: Order Date: 04/29/18 Order Info: 0779-1 - MIACRE TYPE CODE TESTS RESULT OUT OF RANGE REFERENCE UNITS LAB L501.1200 NO RANGE EST. mg/dL Normal UR CREAT 62.80 LAB L502.0500 NO RANGE EST. mg/L Normal 5.2 MICROALBUMIN ,UR LAB L502.0600 <30 mg/g CRE mg/g CRE Normal 8.3 MALB:CREAT Performed By: #### L502.0250, L506.1000, L501.7300 #### [facility] [address] [place], [address] VITAMIN D,25 HYDROXY Collected: 04/29/2018 Status: F Source: [place] 10:03 [facility] REPOSITORY Order Comment: Order Date: 04/29/18 Order Info: 20138-2 - VITD25 TYPE CODE TESTS RESULT OUT OF REFERENCE UNITS RANGE LAB L506.1000 29.95-100.01 ng/mL Low Vitamin D 28.8 25-OH Result Comment: Vitamin D 25(OH) Status Range Deficiency <20 ng/mL (50nmol/L) Insuffciency 20 - 30 ng/mL (50 - 75 nmol/L) Sufficiency 30 - 100 ng/mL (75 - 250 nmol/L) Toxicity >100 ng/mL (>250 nmol/L) Performed By: #### L502.0250, L506.1000, L501.7300 #### [facility] [address] [place], [address] OSMOLALITY, SERUM Collected: 04/29/2018 Status: F Source: [place] 10:03 [facility] REPOSITORY Order Comment: Order Date: 04/29/18 Order Info: 2692-2 - OS TYPE CODE TESTS RESULT OUT OF RANGE REFERENCE UNITS LAB L501.7300 280-301 mOsm/KG Normal 286 OSMOLALITY,S ER Performed By: #### L502.0250, L506.1000, L501.7300 #### [facility] [address] [place], [address] 12 LEAD ELECTROCARDIOGRAM Observed: 04/16/2018 Status: F Source: [place] 1:32 PM [facility] REPOSITORY [facility] Cardiovascular Services [address] [place] [address] 12 Lead EKG 04/14/18 0412 MR#: [id number] Acct: [id number] Name: CAROLINE PATEL Rep #: [id number] : 1955 63 From: Mayco Phelps MD Attending Dr: Yeison Hilton Status: DIS RON Ordering Dr: Blaire Clemons Date: 04/14/18 Location: [facility] Sex: F C Admitted: 04/14/18 Test Reason : AM EKG Blood Pressure : / mmHG Vent. Rate : 064 BPM Atrial Rate : 064 BPM P-R Int : 162 ms QRS Dur : 088 ms QT Int : 436 ms P-R-T Axes : 052 017 065 degrees QTc Int : 449 ms Normal sinus rhythm Normal ECG Confirmed by MATTIE ANTHONY, MAYCO ([id number]), index editor ADELITA GRIFFIN ([id number]) on 04/16/2018 1:31:46 PM Referred By: DEONTE Confirmed By:MAYCO PHELPS MD 04/16/18 1331 Date Mayco Phelps MD CC: Blaire Clemons; Nanda Feldman MD; Yeison Hilton Signed 12 LEAD ELECTROCARDIOGRAM Observed: 04/16/2018 Status: F Source: [place] 1:32 PM [facility] REPOSITORY [facility] Cardiovascular Services [address] [place] [address] 12 Lead EKG 04/14/18 0325 MR#: [id number] Acct: [id number] Name: CAROLINE PATEL Rep #: [id number] : 1955 63 From: Mayco Pehlps MD Attending Dr: Yeison Hilton Status: DIS RON Ordering Dr: Blaire Clemons Date: 04/14/18 Location: [facility] Sex: F C Admitted: 04/14/18 Test Reason : ADMISSION EKG Blood Pressure : / mmHG Vent. Rate : 071 BPM Atrial Rate : 071 BPM P-R Int : 168 ms QRS Dur : 096 ms QT Int : 428 ms P-R-T Axes : 062 041 036 degrees QTc Int : 465 ms Normal sinus rhythm Normal ECG Confirmed by MATTIE ANTHONY, MAYCO ([id number]), index editor ADELITA GRIFFIN ([id number]) on 04/16/2018 1:32:18 PM Referred By: DEONTE Confirmed By:MAYCO PHELPS MD 04/16/18 1332 Date Mayco Phelps MD CC: Blaire Clemons; Nanda Feldman MD; Yeison Hilton Signed 12 LEAD ELECTROCARDIOGRAM Observed: 04/16/2018 Status: F Source: [place] 1:30 PM [facility] REPOSITORY [facility] Cardiovascular Services [address] [place] [address] 12 Lead EKG 04/14/18 1022 MR#: [id number] Acct: [id number] Name: CAROILNE PATEL Rep #: [id number] : 1955 63 From: Mayco Phelps MD Attending Dr: Yeison Hilton Status: DIS RON Ordering Dr: Yeison Hilton MD Date: 04/14/18 Location: [facility] Sex: F C Admitted: 04/14/18 Test Reason : Blood Pressure : / mmHG Vent. Rate : 064 BPM Atrial Rate : 064 BPM P-R Int : 156 ms QRS Dur : 076 ms QT Int : 416 ms P-R-T Axes : 052 002 057 degrees QTc Int : 429 ms Normal sinus rhythm Normal ECG Confirmed by MAYCO PHELPS MD ([id number]), index editor ADELITA GRIFFIN ([id number]) on 04/16/2018 1:29:57 PM Referred By: NICOLE Confirmed By:MAYCO PHEPLS MD 04/16/18 1330 Date Mayco Phelps MD CC: Nanda Feldman MD; Yeison Hilton Signed 12 LEAD ELECTROCARDIOGRAM Observed: 04/16/2018 Status: F Source: [place] 1:27 PM [facility] REPOSITORY [facility] Cardiovascular Services [address] [place] [address] 12 Lead EKG 04/15/18 0509 MR#: [id number] Acct: [id number] Name: CAROLINE PATEL Rep #: [id number] : 1955 63 From: Mayco Phelps MD Attending Dr: Yeison Hilton Status: DIS RON Ordering Dr: Blaire Clemons Date: 04/15/18 Location: [facility] Sex: F C Admitted: 04/14/18 Test Reason : AM EKG Blood Pressure : / mmHG Vent. Rate : 057 BPM Atrial Rate : 057 BPM P-R Int : 148 ms QRS Dur : 086 ms QT Int : 450 ms P-R-T Axes : 060 038 072 degrees QTc Int : 438 ms Sinus bradycardia Otherwise normal ECG Confirmed by MAYCO PHELPS MD ([id number]), index editor ADELITA GRIFFIN ([id number]) on 04/16/2018 1:27:43 PM Referred By: JOSEY Confirmed By:MAYCO PHELPS MD 04/16/18 1327 Date Mayco Phelps MD CC: Blaire Clemons; Nanda Feldman MD; Yeison Hilton Signed 12 LEAD ELECTROCARDIOGRAM Observed: 04/15/2018 Status: F Source: [place] 1:13 PM [facility] REPOSITORY [facility] Cardiovascular Services [address] [place] [address] 12 Lead EKG 04/13/18 2357 MR#: [id number] Acct: [id number] Name: CAROLINE PATEL Rep #: [id number] : 1955 63 From: Emigdio Jacob MD Attending Dr: Yeison Hilton Status: DIS RON Ordering Dr: Chris Jean DO Date: 04/14/18 Location: [facility] Sex: F C Admitted: 04/14/18 Test Reason : CP Blood Pressure : / mmHG Vent. Rate : 072 BPM Atrial Rate : 072 BPM P-R Int : 150 ms QRS Dur : 090 ms QT Int : 394 ms P-R-T Axes : 049 024 033 degrees QTc Int : 431 ms Normal sinus rhythm Nonspecific ST abnormality Abnormal ECG Confirmed by EMIGDIO JACOB ([id number]), index editor ADELITA GRIFFIN (56) on 04/15/2018 1:13:06 PM Referred By: HORACE Confirmed By:EMIGDIO JACOB 04/15/18 1313 Date Emigdio Jacob MD CC: aNnda Feldman MD; Yeison Hilton; Chris Jean Signed DISCHARGE SUMMARY Observed: 04/15/2018 Status: F Source: [place] 10:59 AM [facility] REPOSITORY [facility] Medical Records Department [address] [place] [address] Discharge Summary 04/15/18 1055 MR#: [id number] Acct: [id number] Name: CAROLINE PATEL Rep #: [id number] : 1955 63 From: Yeison Hilton MD PCP: Nanda Feldman MD Status: ADM RON Y Location: [place] [address] Discharge Date and Diagnosis - Problem List Patient Problems: Active and Suspected Problems Acute chest pain (Acute) Hypokalemia (Acute) Chest pain (Acute) Date of Admission: 04/14/18 Date of Discharge: 04/15/18 - Primary Discharge Diagnosis Active and Suspected Problems Chest pain, ACS ruled out. - Secondary Discharge Diagnosis Chronic Problems Heart failure (Chronic) HTN (hypertension) (Chronic) HLD (hyperlipidemia) (Chronic) GERD (gastroesophageal reflux disease) (Chronic) Allergic rhinitis (Chronic) Hospital Course and Treatment Imaging Results: 04/15/18 05:55 Nuclear Stress Test - Treadmil [NM] Routine Clinical Impression(s) from Imaging Studies Chest X-Ray 04/14/18 02:00 IMPRESSION: No acute cardiopulmonary disease. Electronically Signed: Bruce Evans MD at 2:54 EDT , Service support , Procedures: EKG, Stress test Summary of Care Provided: Patient seen and examined on the day of discharge and appeared to be stable for discharge home. She denies any more chest pain, no other symptoms. Her vital signs are stable. - Physical Exam General: Alert, Oriented x3, Cooperative, No apparent distress. HEENT: Atraumatic, PERRLA, EOMI. Neck: Supple, No JVD, Negative Carotid Bruits, Trachea Midline, Thyroid Normal. Lungs: Clear to auscultation, Normal air movement, No rhonchi, No wheeze, No rales. Cardiovascular: Regular rate, Regular Rhythm, Normal S1, Normal S2, PMI Normal. Abdomen: Bowel Sounds Present, Soft, Non Tender, Non-Distended, No Hepato-splenomegaly. Extremities: No clubbing, No cyanosis, No edema Skin: No rashes, No breakdown Neurological: Neuro grossly intact Vital Signs are stable. Hospital course: The patient is a 63 year old F admitted because of chest pain for evaluation. Her EKG revealed normal sinus rhythm without evidence of acute ischemic changes. Chest x-ray showed no acute findings. Cardiac enzymes were negative 2. Her routine blood work was remarkable for mild hypokalemia and her potassium was 3.4, was replaced and corrected. Her vital signs were stable throughout admission. She underwent nuclear stress test that revealed no evidence of myocardial perfusion changes consider diagnostic for associated stress-induced myocardial ischemia and ejection fraction was 64%. ACS ruled out. Her symptoms could be due to GERD. Patient discharged home in a stable medical condition, continued on her home medications including Prevacid, recommended to follow-up with PCP in 1- 2 weeks. Discharge Activity: Return to Normal Activity Weight Bearing Status: Full weight bearing Call your doctor if you observe: Fever of 101 or Higher, Shortness of breath, Dizziness, Fainting spells, Chest pain, Increased palpitations (irregular heartbeat), Uncontrolled pain Home Medications: Medications to take at Discharge Atorvastatin Calcium [Lipitor] 20 mg PO QHS 04/14/18 Cholecalciferol (VIT D3) [Vitamin D3] 1,000 unit PO DAILY 04/14/18 Cholecalciferol (VIT D3) [Vitamin D3] 2,000 unit PO MOWEFR 04/14/18 Fexofenadine HCl [Chastity Allergy] 90 mg PO QHS 04/14/18 Lansoprazole [Prevacid] 30 mg PO DAILY 04/14/18 Magnesium 30 mg PO 04/14/18 Metoprolol Succinate [Toprol Xl] 50 mg PO QHS 04/14/18 Montelukast [Singulair] 10 mg PO DAILY 04/14/18 Multivitamin [Multiple Vitamins] 1 each PO DAILY 04/14/18 Spironolactone [Aldactone] 25 mg PO DAILY 04/14/18 Primary Care Physician: Nanda Feldman MD [Primary Care Provider] - Please follow up with your Primary Care Physician in: 1-2 weeks. Please Follow Up With: nanda feldman Disposition: Home Minutes spent on discharge:: 25 Patient Condition:: Stable Medical Necessity - Tobacco Use Smoking Status: Never smoker Tobacco Use: Non-smoker Meaningful Use Info Meaningful Use Diagnoses (Choose all that apply): None applicable Code Visit OBSV E AND M: 44638 Observation care discharge 04/15/18 1059 <Electronically signed by Yeison Hilton MD> Date Yeison Hilton MD Cosigner Signature (if applicable): Date CC: Nanda Feldman MD; Yeison Hilton Signed DISCHARGE INSTRUCTION Observed: 04/15/2018 Status: F Source: GOLVA 8:54 AM [facility] REPOSITORY [facility] Medical Records Department [address] [place] [address] Instructions for Home/Discharge Instructions 04/15/18 0853 MR#: [id number] Acct: [id number] Name: CAROLINE PATEL Rep #: [id number] : 1955 63 From: Yeison Hilton MD PCP: Nanda Feldman MD Status: ADM RON - Discharge Diagnoses Current Active Problems: Current Active and Chronic Problems Acute chest pain (Acute) Hypokalemia (Acute) Chest pain (Acute) Heart failure (Chronic) HTN (hypertension) (Chronic) HLD (hyperlipidemia) (Chronic) GERD (gastroesophageal reflux disease) (Chronic) Allergic rhinitis (Chronic) You will use the following diet at home:: Cardiac Your food should be the consistency of: Regular Discharge Activity: Return to Normal Activity Weight Bearing Status: Full weight bearing Call your doctor if you observe: Fever of 101 or Higher, Shortness of breath, Dizziness, Fainting spells, Chest pain, Increased palpitations (irregular heartbeat), Uncontrolled pain Allergies/Adverse Reactions: Allergies unknown antibiotic Allergy (Uncoded 04/14/18 00:15) Unknown Medications to take at Discharge Atorvastatin Calcium [Lipitor] 20 mg PO QHS 04/14/18 Cholecalciferol (VIT D3) [Vitamin D3] 1,000 unit PO DAILY 04/14/18 Cholecalciferol (VIT D3) [Vitamin D3] 2,000 unit PO MOWEFR 04/14/18 Fexofenadine HCl [Chastity Allergy] 90 mg PO QHS 04/14/18 Lansoprazole [Prevacid] 30 mg PO DAILY 04/14/18 Magnesium 30 mg PO 04/14/18 Metoprolol Succinate [Toprol Xl] 50 mg PO QHS 04/14/18 Montelukast [Singulair] 10 mg PO DAILY 04/14/18 Multivitamin [Multiple Vitamins] 1 each PO DAILY 04/14/18 Spironolactone [Aldactone] 25 mg PO DAILY 04/14/18 Primary Care Physician: Nanda Feldman MD [Primary Care Provider] - Please follow up with your Primary Care Physician in: 1-2 weeks. Test Results: Test results from this visit will be discussed in further detail at your follow-up appointment, if applicable. 04/15/18 0854 <Electronically signed by Yeison Hilton MD> Date Yeison Hilton MD CC: Nanda Feldman MD STRESS REPORT Observed: 04/15/2018 Status: F Source: GOLVA 8:49 AM [facility] REPOS[facility]ORY [facility] Cardiovascular Services [address] [place] [address] MR#: [id number] Acct: [id number] Name: CAROLINE PATEL Rep #: [id number] : 1955 63 From: Mayco Phelps MD Primary Care: Nanad Feldman MD Status: ADM RON Ordering Dr: Sex: F C Stress Test Report Date: 04/15/2018 Procedure: Exercise tolerance test/imaging study Indications: Chest pain Consent: Per the patient Procedure: The patient exercised on a Anderson protocol for 6 minutes completing Stage II achieving a peak heart rate of 130 bpm (81 % predicted maximal heart rate) with a peak blood pressure 148/88 mmHg and a peak MET capacity of 7 METs. The baseline ECG demonstrated normal sinus rhythm. The peak exercise ECG demonstrated somatic/motion artifact with no obvious ECG changes at the heart rate achieved. There was a rare PVC during recovery. The functional capacity was considered average. There was no complaint of chest discomfort during exercise or recovery. The examination was discontinued secondary to dyspnea. Impression: 1. Technically inadequate (percent predicted maximal heart rate less than 85%) exercise tolerance test 2. Peak exercise ECG with somatic/motion artifact with no obvious ECG changes at the heart rate achieved 3. There was a rare PVC during recovery. 4. Nuclear images pending Myocardial perfusion imaging study: Technique: The patient was injected with 14.5 mCi of technetium 99m Cardiolite and subsequently rest SPECT Cardiolite nuclear imaging was obtained in the horizontal long, vertical long, and short axis views. The patient exercised on a Anderson protocol for 6 minutes completing Stage II achieving a peak heart rate of 130 bpm (81 % predicted maximal heart rate) with a peak blood pressure 148/88 mmHg and a peak MET capacity of 7 METs. The patient was injected with 43.8 mCi of technetium 99m Cardiolite and subsequently stress SPECT Cardiolite nuclear imaging was obtained in the horizontal long, vertical long, and short axis views. A gated Cardiolite study at peak stress was obtained. Interpretation: Rest and stress SPECT Cardiolite nuclear imaging status post realignment, normalization, and attenuation correction, demonstrates the appearance of a small area of diminished tracer uptake near the apical segments without significant change between rest and stress. There is end systolic thickening and brightening. The gated Cardiolite study demonstrates myocardial thickening and inward wall motion. The reported LVEF is 64 %. Impression: 1. Rest and stress SPECT Cardiolite nuclear imaging demonstrate myocardial perfusion changes appearing compatible with physiologic apical thinning with no myocardial perfusion changes considered diagnostic for associated stress-induced myocardial ischemia at the heart rate achieved. 2. The gated Cardiolite study reports an LVEF of 64 %. This note was generated with Roomorama software. It may contain incorrect words, spelling, and punctuation that were not noted in checking the note before signing. 04/15/1849 <Electronically signed by Mayco Phelps MD> Date Mayco Phelps MD CC: Nanda Feldman MD; Yeison Hilton Date Dictated: 04/15/18842 Date Transcribed: 04/15/18842 Placement Assistant: PM Signed PROTHROMBIN TIME W/INR Collected: 04/15/2018 Status: F Source: LORRI 5:44 AM [facility] REPOS[facility]ORY TYPE CODE TESTS RESULT OUT OF RANGE REFERENCE UNITS LAB L300.4150 11.7-14.9 SECONDS Normal PROTIME 12.8 LAB L300.4200 Normal INR 1.0 Performed By: #### L300.3900, L300.4310 #### [facility] [address] [place], [place], [id number] PARTIAL THROMBOPLAST Collected: 04/15/2018 Status: F Source: LORRI TIME 5:44 AM [facility]POS[facility] TYPE CODE TESTS RESULT OUT OF RANGE REFERENCE UNITS LAB L300.4310 24.1-36.2 Seconds Normal PTT 25.5 Performed By: #### L300.3900, L300.4310 #### [facility] [address] [place], [address] CBC W/DIFF, AUTOMATED Collected: 04/15/2018 Status: F Source: LORRI 5:44 AM [facility] TYPE CODE TESTS RESULT OUT OF RANGE REFERENCE UNITS LAB L100.1000 4.4-11.0 K/mm3 Normal WBC 5.7 LAB L100.1200 4.2-5.4 M/mm3 Normal RBC 4.50 LAB L100.1300 12.0-15.0 g/dl Normal HGB 14.6 LAB L100.1400 37-47 % Normal HCT 44.1 LAB L100.1500 81-99 fL Normal MCV 98.0 LAB L100.1600 27.0-32.0 pg High MCH 32.4 LAB L100.1700 32-36 g/gl Normal MCHC 33.1 LAB L100.1810 11.6-14.6 % Normal RDW CV 12.9 LAB L100.1820 35.1-43.9 fl High RDW SD 45.8 LAB L100.1900 150-450 K/mm3 Normal PLT 215 LAB L100.2000 6.2-12.0 fl Normal MPV 9.7 LAB L100.2100 47-70 % Normal NEUT% 54.2 LAB L100.2200 19-41 % Normal LY% 31.1 LAB L100.2300 0-10 % High MONO% 10.8 LAB L100.2400 0-5 % Normal EO% 3.0 LAB L100.2500 0-1 % Normal BASO% 0.7 LAB L100.2550 0.0-0.9 % Normal IM GRAN % 0.200 Result Comment: IG% - Immature Granulocytes (promyelocytes, myelocytes and metamyelocytes) > 1% indicates that a LEFT SHIFT is Present. LAB L100.2620 2.0-7.7 X10 3/uL Normal Absolute Neut 3.1 LAB L100.2720 0.83-4.51 X10 3/ul Normal Absolute Lymph 1.78 Performed By: #### L100.0100 #### [facility] [address] [place], [place], [address] BASIC METABOLIC Collected: 04/15/2018 Status: F Source: LORRI PROFILE (BMP) 5:44 AM [facility] REPOS[facility] TYPE CODE TESTS RESULT OUT OF RANGE REFERENCE UNITS LAB L501.0100 74-106 mg/dL Normal GLU 87 Result Comment: Please note revised GLUCOSE reference range effective 2017. LAB L501.1000 7-18 mg/dL Normal BUN 7 LAB L501.1100 0.55-1.02 mg/dL Normal CREAT,SERUM 0.65 Result Comment: The validity of the calculated GFR AND GFRAA in patients over 70 years has not been determined. Clinical correlation is essential. LAB L501.1110 >60 mL/min Normal EST GFR 98 Result Comment: Non- GFR Calc LAB L501.1115 >60 mL/min Normal EST GFR - AA 119 Result Comment: GFR Calc LAB L501.1255 ml/min Normal Estimated CRCL 78.49 LAB L501.1300 10-20 RATIO Normal BUN/CRE 10.7 LAB L501.2200 8.5-10 mg/dL Normal .1 CA 8.7 LAB L501.5300 136-14 mmol/L Normal 5 NA 144 LAB L501.5600 3.5-5. mmol/L Normal 1 K 4.1 LAB L501.5900 98-107 mmol/L High CL 110 LAB L501.6100 21.0-3 mmol/L Normal 2.0 CO2 24.0 LAB L501.6200 5-15 Normal GAP 10 Performed By: #### L500.2500 #### [facility] [address] [place], [address] TROPONIN-I Collected: 04/14/2018 Status: F Source: LORRI 6:40 AM [facility] REPOS[facility]ORY Order Comment: 'TROP' Serial specimen #1, #2 or #3: 3 TYPE CODE TESTS RESULT OUT OF RANGE REFERENCE UNITS LAB L501.4010 <0.045 ng/mL Normal < 0.015 TROPONIN-I Result Comment: TROPONIN-I EXPECTED VALUES <0.045 Negative 0.045 - 0.590 Consistent with Cardiac Damage > OR = 0.600 Critical Value Not every elevated troponin is indicative of LA. These values should be used with clinical judgement in examining the patient's clinical picture for diagnosis. To establish a diagnosis of LA versus myocardial injury, there must be a demonstrated rise and/or fall in the troponin values, in addition to ischemic symptoms, EKG changes, new regional wall motion abnormality, and/or angiographical evidence. PLEASE NOTE: REFERENCE RANGES EDITED 17 Performed By: #### L501.4010 #### [facility] [address] [place], [address] HISTORY AND PHYSICAL Observed: 04/14/2018 Status: F Source: GOLVA EXAM 3:42 AM [facility] REPOS[facility]ORY [facility] Medical Records Department [address] [place] [address] History and Physical 04/14/18 0221 MR#: [id number] Acct: [id number] Name: CAROLINE PATEL Rep #: [id number] : 1955 63 From: Blaire Clemons PCP: Nanda Feldman MD Status: ADM RON Y Location: [place] [address] Problem List (1) Chest pain Status: Acute Qualifiers: Chest pain type: unspecified Qualified Code(s): R07.9 - Chest pain, unspecified (2) Hypokalemia Status: Acute (3) Heart failure Status: Chronic Qualifiers: Heart failure type: unspecified Heart failure chronicity: unspecified Qualified Code(s): I50.9 - Heart failure, unspecified (4) HTN (hypertension) Status: Chronic Qualifiers: Hypertension type: essential hypertension Qualified Code(s): I10 - Essential (primary) hypertension (5) HLD (hyperlipidemia) Status: Chronic Qualifiers: Hyperlipidemia type: pure hypercholesterolemia Qualified Code(s): E78.00 - Pure hypercholesterolemia, unspecified; E78.0 - Pure hypercholesterolemia (6) GERD (gastroesophageal reflux disease) Status: Chronic Qualifiers: Esophagitis presence: esophagitis presence not specified Qualified Code(s): K21.9 - Gastro-esophageal reflux disease without esophagitis (7) Allergic rhinitis Status: Chronic Qualifiers: Allergic rhinitis trigger: unspecified Allergic rhinitis seasonality: unspecified Qualified Code(s): J30.9 - Allergic rhinitis, unspecified History of Present Illness Date of Admission: 04/14/18 Chief Complaint: Chest pain The patient is a 63 y/o F w/ PMHx: ? CHF Unclear Type, HTN, HLD, Hx TIA, Obesity, Allergic Rhinitis who presents the [facility] ED on 04/14/18 with history of onset RUE discomfort, mild ongoing x 2 days which patient attributed to gardening with onset on morning prior to ED presentation at 10 am, substernal chest pain, described as someone pounding on her chest with radiation to the region between her shoulder blades with associated nausea and emesis as well as dyspnea, noted to be intermittent throughout the day, initially less severe but worsened with rate 8/10 upon ED presentation but improvement following ED NG to 2/3. She noted it initially started while she was driving and required her to press puller. In the ED work-up included T 97.4, heart rate 79, BP 123/53, respiratory rate 16, 97% on room air, CBC unremarkable, coags unremarkable, d-dimer 0.28, BMP unremarkable, potassium 3.2, EKG was sinus rhythm with no acute evidence of ischemia, chest x-ray without acute process. The emergency room patient administered aspirin, nitroglycerin sublingual with eventual Nitro-Bid placement, Zofran, potassium supplementation 40 mEq p.o. 1, Phenergan. Past Medical History Past Medical History (Chronic Problems): Chronic Problems Heart failure (Chronic) HTN (hypertension) (Chronic) HLD (hyperlipidemia) (Chronic) GERD (gastroesophageal reflux disease) (Chronic) Allergic rhinitis (Chronic) Allergies unknown antibiotic Allergy (Uncoded 04/14/18 00:15) Unknown Home Medications: Ambulatory Orders Medication Instructions Recorded Atorvastatin Calcium [Lipitor] 20 mg PO QHS 04/14/18 Cholecalciferol (VIT D3) [Vitamin 1,000 unit PO DAILY 04/14/18 D] Cholecalciferol (VIT D3) [Vitamin 2,000 unit PO MOWEFR 04/14/18 Surgical History: - - Bilateral knee arthroscopic surgery and meniscal repairs, right ankle tendon repair, bilateral bunionectomy, bilateral plantar fascia surgery. Psychiatric History: No pertinent psych hx DIE FORGER History: No pertinent DIE FORGER history Lives: Spouse/ Significant Other Smoking Status: Never smoker Tobacco Use: Non-smoker Alcohol: Occasional Drugs: None - *Family History Maternal History Items: Cancer - Mother with a history of throat and vaginal cancer. Paternal History Items: Cancer - Father with a history of colon cancer. Review of Systems Constitutional: Reports: Malaise, Weakness, Fatigue. Denies: Chills, Fever, Weight Change HEENT: Denies: Head Aches, Sinus Congestion, Sinus Drainage Cardiovascular: Reports: Chest Pain. Denies: Chest Pressure, Chest Tightness, Light Headedness, Orthopnea, Palpitations, Syncope Respiratory: Reports: Shortness of Breath. Denies: Cough, Shortness of breath at rest, Sputum production Gastrointestinal: Reports: Nausea, Vomiting. Denies: Abdominal Pain Genitourinary: Denies: Dysuria Musculoskeletal: Denies: Joint Pain, Joint Tenderness Skin: Denies: Rash, Wounds Neurological: Denies: Numbness, Tingling, Focal weakness Psychiatric: Denies: Anxiety, Depression, Homicidal Ideations, Suicidal Ideations Hematologic/ Lymphatic: Denies: Easy Bruising, Easy Bleeding VTE Information - Inpt Only VTE Present on Admission: No VTE Mechan Device Prophylaxis: SCD's VTE Pharm Prophylaxis ordered?: Yes Patient Problems: Active and Suspected Problems Acute chest pain (Acute) Hypokalemia (Acute) Chest pain (Acute) Subjective: Seated upright in the ED bed, notes improved chest discomfort since initial ED presentation. Objective: Physical Examination: General: awake, alert, oriented x 3 and cooperative, seated upright in the ED bed, restless, notes improvement of chest discomfort since initial ED presentation. Skin: normal color, turgor, no icterus, cyanosis. HEENT: AT/NC, EOMI, PERRLA, MMM, no carotid bruits or JVD noted. Lungs: CTA bilaterally, moderate effort, mild decrease BL bases, no rales, ronchi or wheezing. Heart: Regular rate and rhythm; no gallop, rub audible. Abdomen: soft, obese, NTTP, ND, normal BS, no HSM. Extremities: no cyanosis, clubbing, or edema. Neurological: patient awake, alert, oriented x 3; cognitive function intact; pupils equally reactive to light and accomodation; cranial nerves II-XII grossly normal, moving all 4 extremities, no focal deficits, strength mildly globally decreased secondary to acute presentation. Psychiatric: affect appears restless, no acute evidence of depressive or anxiety feelings. - Physical Exam Vital Signs Temp Pulse Resp BP Pulse Ox 98.5 F 66 14 114/65 97 04/13/18 23:47 04/14/18 02:11 04/14/18 02:11 04/14/18 02:11 04/14/18 02:11 Oxygen Delivery Method Room Air Weight: 205 lb 0.478 oz Body Mass Index (BMI) 35.2 Laboratory Tests Past 24 Hrs WBC 8.5 RBC 4.46 Assessment/Plan All Active Problems Acute chest pain (Acute) Hypokalemia (Acute) Chest pain (Acute) The patient is a 63 y/o F w/ PMHx: ? CHF Unclear Type, HTN, HLD, Hx TIA, Obesity, Allergic Rhinitis who presents the [facility] ED on 04/14/18 with history of onset RUE discomfort, mild ongoing x 2 days which patient attributed to gardening with onset on morning prior to ED presentation at 10 am, substernal chest pain, described as someone pounding on her chest with radiation to the region between her shoulder blades with associated nausea and emesis as well as dyspnea, noted to be intermittent throughout the day, initially less severe but worsened with rate 8/10. (1) Chest Pain: EKG in ED with sinus rhythm with no acute evidence of ischemia, CXR w/ no acute process, initial trop normal 1. Will admit to PCU, place on a monitored bed to assure no acute myocardial infarction with serial cardiac enzymes and EKGs. If cardiac enzyme series remains unremarkable we will plan to pursue cardiac stress testing on 04/15/18. ASA, NG, morphine. FLP in AM. Mag pending. (2) ? CHF, Unclear Type, Reported per Patient: From records 09/2014 ECHO w/ normal LV systolic function, EF 60%, moderately enlarged LA, mildly enlarged RA, mild to moderate MV insufficiency, mild to moderate TV insufficiency, RVSP 45 mmHg, maintained on asa, metoprolol, statin, spironolactone, not on ACEI. (3) Hypertension: Continue home regimen including metoprolol, Spironolactone, PRN hydralazine. (4) Hyperlipidemia: Continue home statin regimen. AM FLP. (5) Hx TIA: Maintain on asa, BP regimen, statin therapy. (6) Obesity: Weight loss and lifestyle changes encouraged. (7) GERD: Famotidine. (8) DVT Prophylaxis: SCDs, lovenox. Code Visit OBSV E AND M: 19606 Initial observation care L3 04/14/18 0342 <Electronically signed by Blaire Clemons > Date Blaire Clemons Cosigner Signature: Date (if applicable) CC: Blaire Benitez Deonte; Nanda Feldman MD Signed TROPONIN-I Collected: 04/14/2018 Status: F Source: GOLVA 3:25 AM [facility] REPOS[facility] Order Comment: 'TROP' Serial specimen #1, #2 or #3: 2 TYPE CODE TESTS RESULT OUT OF RANGE REFERENCE UNITS LAB L501.4010 <0.045 ng/mL Normal < 0.015 TROPONIN-I Result Comment: TROPONIN-I EXPECTED VALUES <0.045 Negative 0.045 - 0.590 Consistent with Cardiac Damage > OR = 0.600 Critical Value Not every elevated troponin is indicative of LA. These values should be used with clinical judgement in examining the patient's clinical picture for diagnosis. To establish a diagnosis of LA versus myocardial injury, there must be a demonstrated rise and/or fall in the troponin values, in addition to ischemic symptoms, EKG changes, new regional wall motion abnormality, and/or angiographical evidence. PLEASE NOTE: REFERENCE RANGES EDITED 17 Performed By: #### L501.4010 #### [facility] [address] [place], [address] BASIC METABOLIC Collected: 04/14/2018 Status: F Source: GOLVA PROFILE (BMP) 3:25 AM [facility]POS[facility] TYPE CODE TESTS RESULT OUT OF RANGE REFERENCE UNITS LAB L501.0100 74-106 mg/dL High GLU 132 Result Comment: Fasting Glucose result greater than or equal to 126 mg/dL suggests DIABETES MELLITUS per A.D.A. criteria. Please note revised GLUCOSE reference range effective 2017. LAB L501.1000 7-18 mg/dL Normal BUN 9 LAB L501.1100 0.55-1.02 mg/dL Normal CREAT,SERUM 0.74 Result Comment: The validity of the calculated GFR AND GFRAA in patients over 70 years has not been determined. Clinical correlation is essential. LAB L501.1110 >60 mL/min Normal EST GFR 85 Result Comment: Non- GFR Calc LAB L501.1115 >60 mL/min Normal EST GFR - AA 103 Result Comment: GFR Calc LAB L501.1255 ml/min Normal Estimated CRCL 68.94 LAB L501.1300 10-20 RATIO Normal BUN/CRE 12.2 LAB L501.2200 8.5-10 mg/dL Normal .1 CA 8.5 LAB L501.5300 136-14 mmol/L Normal 5 NA 143 LAB L501.5600 3.5-5. mmol/L Low 1 K 3.4 LAB L501.5900 98-107 mmol/L High CL 109 LAB L501.6100 21.0-3 mmol/L Normal 2.0 CO2 23.0 LAB L501.6200 5-15 Normal GAP 11 Performed By: #### L500.2500, L500.4100 #### [facility] [address] [facility]. [place], [place], [id number] LIPID PROFILE Collected: 04/14/2018 Status: F Source: GOLVA 3:25 AM [facility] REPOS[facility]ORY TYPE CODE TESTS RESULT OUT OF RANGE REFERENCE UNITS LAB L501.4900 200 mg/dL Normal CHOL 98 Result Comment: <200 mg/dL Desirable 200-240 mg/dL Borderline >240 mg/dL High Risk LAB L501.5000 mg/dL Normal TRIG 39 Result Comment: The drugs N-Acetylcysteine and Metamizole may falsely depress this assay. Serum Triglycerides Reference Interval Normal <150 mg/dL Borderline high 150 - 199 mg/dL High 200 - 499 mg/dL Very High > or = 500 mg/dL LAB L501.6400 mg/dL Normal HDL 61 Result Comment: The drugs N-Acetylcysteine and Metamizole may falsely depress this assay. Reference Range HDL <40 mg/dL Low HDL Cholesterol HDL >or= 60 mg/dL High HDL Cholesterol LAB L501.6500 0-130 mg/dL Normal LDL 29 LAB L501.6600 5-40 mg/dL Normal VLDL 8 Performed By: #### L500.2500, L500.4100 #### [facility] [address] [place], [place], [id number] CBC-COMPLETE BLOOD CNT Collected: 04/14/2018 Status: F Source: GOLVA NO DIFF 3:25 AM [facility] REPOS[facility] TYPE CODE TESTS RESULT OUT OF RANGE REFERENCE UNITS LAB L100.1000 4.4-11.0 K/mm3 Normal WBC 8.4 LAB L100.1200 4.2-5.4 M/mm3 Normal RBC 4.20 LAB L100.1300 12.0-15.0 g/dl Normal HGB 13.8 LAB L100.1400 37-47 % Normal HCT 40.9 LAB L100.1500 81-99 fL Normal MCV 97.4 LAB L100.1600 27.0-32.0 pg High MCH 32.9 LAB L100.1700 32-36 g/gl Normal MCHC 33.7 LAB L100.1810 11.6-14.6 % Normal RDW CV 12.5 LAB L100.1820 35.1-43.9 fl Normal RDW SD 43.6 LAB L100.1900 150-450 K/mm3 Normal PLT 223 LAB L100.2000 6.2-12.0 fl Normal MPV 9.8 Performed By: #### L100.0500 #### [facility] [address] [facility] [place], [address] EMERGENCY DEPARTMENT Observed: 04/14/2018 Status: F Source: GOLVA SUMMARY 2:32 AM [facility] REPOSITORY [facility] Medical Records Department [address] [place] [address] Emergency Department Summary 04/14/18 0026 MR#: [id number] Acct: [id number] Name: CAROLINE PATEL Rep #: [id number] : 1955 63 From: Chris Flores PCP: Gaston ANTHONY,Nanda Status: REG ER - ER Visit Summary Date of Service: 04/14/18 Chief Complaint: Chest pain History of Present Illness: The patient is a 63 F substernal chest pain started while driving at 10 AM. States feels like somebody punched me with a fist. Symptoms been constant the chest, intermittent sharp pain to her back. Denies dyspnea. Nausea vomiting 2, no hematemesis. States has right arm pain, however states was pulling weeds a couple days ago. History of congestive heart failure. States she has had heart cath 3, last one was approximately [address] Miller. However states she does not follow with him and does not want to. No history of LA or stents. She was taken off aspirin. History of hypertension and cholesterol. No diabetes. No tobacco history. No family history of LA young age. 2 recent travels in February in March to [place] in [place]. Denies any exertional dyspnea. Pain is a 4 currently. No aspirin at home. Physical Examination: General: Alert and oriented 3, no acute distress HEENT: Normocephalic, atraumatic. Moist mucosa membranes Neck: supple, nontender. Cardiovascular: Regular rate and rhythm, no murmurs Respiratory: Normal breath sounds, symmetric, no distress Abdomen: Soft, nontender, nondistended Extremities: Nontender, no edema, pulses intact 4 Neuro: no focal neurological deficits. Test Results: EKG sinus rate of 72, no ST or T-wave changes. Hemoglobin 14.4. Potassium 3.2. Troponin 0 0.015. D-dimer 0.028. Chest x-ray negative. Emergency Department Course and Treatment: Patient presented chest pain EKG normal. Aspirin nitro series given. Cardiac workup negative. D-dimer secondary to recent travel obtain negative. Chest x-ray negative. Given Zofran and Phenergan for nausea symptoms. Potassium was replaced. Nitro paste was placed. Repeat evaluation had minimal pain. ROMÁN risk score is a 1. Heart scores a 4. Heart cath she stated 2 years ago have on records nodes in 2012. With her symptoms however do feel with risk factors benefit from inpatient evaluation. Discuss with hospitalist Dr. Clemons who admitted to PCU for further management. Treatment Plan: [] Disposition: Admission Impression: 1. Acute chest pain 2. Hypokalemia This note was generated with [employer] dictation software. It may contain incorrect words, spelling, and punctuation that were not noted in review of the chart prior to signing ED Disposition - Plan for ED Patient: Disposition: Acute Care Hospital [facility] Chief Complaint: Chest Pain Diagnosis: Acute chest pain, Hypokalemia Referrals: Nanda Feldman MD [Primary Care Provider] - What to do if you have Problems For any increased pain, shortness of breath, bleeding, nausea or vomiting, chest pain, or any unexpected problems, contact your Primary Care Provider. Call [facility] ([phone]) or report to the closest Emergency Room. Call 911 if necessary. 04/14/18 0232 <Electronically signed by Chris Flores> Date Chris Flores Cosigner Signature (If Indicated): Date CC: Nanda Feldman MD CHEST PA AND LATERAL Observed: 04/14/2018 Status: F Source: GOLVA 1:37 AM [facility] REPOSITORY [facility] Imaging Services [address] [place] [address]84 Chest PA and Lateral MR#: [id number] Acct: [id number] Name: CAROLINE PATEL Rep #: [id number] : 1955 F 63 From: Bruce Evans PCP: Nanda Feldman MD Status: ADM RON Study: Chest PA and Lateral Date of Exam: 04/14/18 Exam# [id number] Ordering Dr: Chris Jean DO STUDY: X-RAY CHEST REASON FOR EXAM: Female, 63 years old. Chest pain, nausea. TECHNIQUE: PA and lateral chest. COMPARISON: Report of study from March 27, 2011. FINDINGS: The lungs are clear and expanded. There is no demonstrated pleural abnormality. Normal size heart. Normal mediastinum and carlito. Normal visualized pulmonary arteries. Normal visualized aortic arch and descending thoracic aorta. Degenerative changes of the thoracic spine. Normal visualized ribs, clavicles, and shoulders. There is no demonstrated abnormality of the visualized soft tissue structures of the upper abdomen. RAD/Chest PA and Lateral IMPRESSION: No acute cardiopulmonary disease. Electronically Signed: Bruce Evans MD at 2:54 EDT , Service support , CC: Nanda Feldman MD; Chris Jean Placement Assistant: Signed CBC W/DIFF, AUTOMATED Collected: 04/14/2018 Status: F Source: LORRI 12:45 AM [facility] REPOSITORY TYPE CODE TESTS RESULT OUT OF RANGE REFERENCE UNITS LAB L100.1000 4.4-11.0 K/mm3 Normal WBC 8.5 LAB L100.1200 4.2-5.4 M/mm3 Normal RBC 4.46 LAB L100.1300 12.0-15.0 g/dl Normal HGB 14.4 LAB L100.1400 37-47 % Normal HCT 43.6 LAB L100.1500 81-99 fL Normal MCV 97.8 LAB L100.1600 27.0-32.0 pg High MCH 32.3 LAB L100.1700 32-36 g/gl Normal MCHC 33.0 LAB L100.1810 11.6-14.6 % Normal RDW CV 12.9 LAB L100.1820 35.1-43.9 fl High RDW SD 46.0 LAB L100.1900 150-450 K/mm3 Normal PLT 233 LAB L100.2000 6.2-12.0 fl Normal MPV 10.0 LAB L100.2100 47-70 % Normal NEUT% 68.8 LAB L100.2200 19-41 % Normal LY% 19.0 LAB L100.2300 0-10 % Normal MONO% 9.3 LAB L100.2400 0-5 % Normal EO% 2.2 LAB L100.2500 0-1 % Normal BASO% 0.6 LAB L100.2550 0.0-0.9 % Normal IM GRAN % 0.100 Result Comment: IG% - Immature Granulocytes (promyelocytes, myelocytes and metamyelocytes) > 1% indicates that a LEFT SHIFT is Present. LAB L100.2620 2.0-7.7 X10 3/uL Normal Absolute Neut 5.9 LAB L100.2720 0.83-4.51 X10 3/ul Normal Absolute Lymph 1.62 Performed By: #### L100.0100 #### [facility] [place], [address] PROTHROMBIN TIME W/INR Collected: 04/14/2018 Status: F Source: LORRI 12:45 AM [facility] REPOSITORY TYPE CODE TESTS RESULT OUT OF RANGE REFERENCE UNITS LAB L300.4150 11.7-14.9 SECONDS Normal PROTIME 12.7 LAB L300.4200 Normal INR 1.0 Performed By: #### L300.3900, L300.4310, L300.8000 #### [facility] [address] [place], [place], [address] PARTIAL THROMBOPLAST Collected: 04/14/2018 Status: F Source: LORRI TIME 12:45 AM [facility] REPOSITORY TYPE CODE TESTS RESULT OUT OF RANGE REFERENCE UNITS LAB L300.4310 24.1-36.2 Seconds Normal PTT 26.8 Performed By: #### L300.3900, L300.4310, L300.8000 #### [facility] [address] [facility] [address] D-DIMER QUANTITATIVE Collected: 04/14/2018 Status: F Source: LORRI (DVT/PE) 12:45 AM [facility] REPOSITORY TYPE CODE TESTS RESULT OUT OF RANGE REFERENCE UNITS LAB L300.8000 0.27-0.49 FEU/ug/m Normal D-DIMER 0.28 QUANT Result Comment: NORMAL D-Dimer level (<0.50) indicates no DVT or PE. Performed By: #### L300.3900, L300.4310, L300.8000 #### [facility] [address] [place], [place], [address] BASIC METABOLIC Collected: 04/14/2018 Status: F Source: LORRI PROFILE (BMP) 12:45 AM [facility] REPOSITORY TYPE CODE TESTS RESULT OUT OF RANGE REFERENCE UNITS LAB L501.0100 74-106 mg/dL Normal GLU 96 Result Comment: Please note revised GLUCOSE reference range effective 2017. LAB L501.1000 7-18 mg/dL Normal BUN 11 LAB L501.1100 0.55-1.02 mg/dL Normal CREAT,SERUM 0.75 Result Comment: The validity of the calculated GFR AND GFRAA in patients over 70 years has not been determined. Clinical correlation is essential. LAB L501.1110 >60 mL/min Normal EST GFR 84 Result Comment: Non- GFR Calc LAB L501.1115 >60 mL/min Normal EST GFR - AA 102 Result Comment: GFR Calc LAB L501.1255 ml/min Normal Estimated CRCL 68.02 LAB L501.1300 10-20 RATIO Normal BUN/CRE 14.7 LAB L501.2200 8.5-10 mg/dL Normal .1 CA 9.2 LAB L501.5300 136-14 mmol/L Normal 5 NA 141 LAB L501.5600 3.5-5. mmol/L Low 1 K 3.2 LAB L501.5900 98-107 mmol/L Normal CL 107 LAB L501.6100 21.0-3 mmol/L Normal 2.0 CO2 24.0 LAB L501.6200 5-15 Normal GAP 10 Performed By: #### L500.2500, L501.4010 #### [facility] [address] [facility]. [place], [place], [address] TROPONIN-I Collected: 04/14/2018 Status: F Source: GOLVA 12:45 AM [facility] REPOSITORY TYPE CODE TESTS RESULT OUT OF RANGE REFERENCE UNITS LAB L501.4010 <0.045 ng/mL Normal < 0.015 TROPONIN-I Result Comment: TROPONIN-I EXPECTED VALUES <0.045 Negative 0.045 - 0.590 Consistent with Cardiac Damage > OR = 0.600 Critical Value Not every elevated troponin is indicative of LA. These values should be used with clinical judgement in examining the patient's clinical picture for diagnosis. To establish a diagnosis of LA versus myocardial injury, there must be a demonstrated rise and/or fall in the troponin values, in addition to ischemic symptoms, EKG changes, new regional wall motion abnormality, and/or angiographical evidence. PLEASE NOTE: REFERENCE RANGES EDITED 17 Performed By: #### L500.2500, L501.4010 #### [facility] [address] [facility]. [place], [place], [address] MAGNESIUM Collected: 04/14/2018 Status: F Source: GOLVA 12:45 AM [facility] REPOSITORY TYPE CODE TESTS RESULT OUT OF RANGE REFERENCE UNITS LAB L501.5200 1.6-2.6 mg/dL Normal MG 2.0 Performed By: #### L501.5200 #### [facility] [address] [place], [address] ALLERGIES ALLERGIES DATE TYPE / CODE NAME / CODE REACTION SEVERITY SOURCE 04/14/2018 Miscellaneous unknown Unknown Unknown [facility] Allergy/[id number](S antibiotic Community NOMED MO) Hospital Repository ENCOUNTERS ENCOUNTERS ADMIT/DISCHARGE ACCOUNT ADMITTING ENCOUNTER LOCATION SOURCE NUMBER CLASS 08/27/2018 [id number] Ambulatory [facility]vin [facility] 9 [facility] ing:OPBI Repository 07/30/2018 [id number] Ambulatory [facility] Melvin 8 [facility] ing:LABSPEC Repository 05/26/2018 [id number] Ambulatory Lorri Melvin 8 [facility] ing:OPUS Repository 05/08/2018 [id number] Ambulatory Melvin Melvin 4 [facility] ing:MFPLAB Repository 04/29/2018 [id number] Ambulatory Lorri Lorri 7 [facility] ing:MFPLAB Repository 04/15/2018/ [id number] Ambulatory BMSBuilding:W Melvin 8 9 [facility] Repository 04/14/2018/ [id number] Blaire Clemons Ambulatory Lorri Melvin 8 6 [facility] ing:PCURoom: Repository [id number]: 1 04/14/2018 [id number] Blaire Clemons Ambulatory BMSBuilding:B [place] 6 [facility] Repository 04/14/2018 [id number] Blaire Clemons Ambulatory BMSBuilding:B [place] 0 [facility] Repository PAYERS PAYERS ENCOUNTER GUARANTOR PAYER SUBSCRIBER SOURCE 08/27/2018 CAROLINE Escoto Lorri [id number] Insurance:ANTHEMPolic HardmanDOB[facility] y Number: [id number] [id number] Repository 342[address]Dvl: (278) Date:1910-15-18[phone] () [id number], [place] [address]JL: 08/27/2018 Secondary NOT GIVENUNK Lorri Insurance:SELF PAY [facility] Effective Repository Date:2018-07-08 07/30/2018 Caroline Benitez Primary Brian D Melvin [id number] Insurance:AETNAPolicy HardmanDOB: Community [place] Number: [id number] [place] [id number] Repository [address]Qgh: (330) Date:8718-31-01KC [phone] () [id number] [place] [address]BE: 07/30/2018 Secondary NOT GIVENUNK Melvin Insurance:SELF PAY [facility] Number: Effective Repository Date:2018-07-30 05/26/2018 Caroline Benitez Primary Brian D Lorri [id number] Insurance:AETNAPolicy HardmanDOB: Community [place] Number: [id number] [id number] Repository [address]Eix: (330) Date:3894-55-52BQ [phone] () [id number] [place] [address]LC: 05/26/2018 Secondary NOT GIVENUNK Lorri Insurance:SELF PAY [facility] Number: Effective Repository Date:2018-05-22 05/08/2018 Caroline Benitez Primary Brian D Melvin [id number] Insurance:AETNAPolicy HardmanDOB: Community [place] Number: [id number] [place] [id number] Repository [address]Nwn: (330) Date:6307-58-39OJ [phone] () [id number] [place] [address]LS: 05/08/2018 Secondary NOT GIVENUNK Lorri Insurance:SELF PAY [facility] Number: Effective Repository Date:2018-05-08 04/29/2018 Caroline Benitez Primary Brian D Lorri [id number] Insurance:AETNAPolicy HardmanDOB: Community [place] Number: [id number] [place] [id number] Repository [address]Tqi: (330) Date:4647-75-74QD [phone] (HP) [id number] DAPHNE DICKINSON [address]MX: 04/29/2018 Secondary NOT GIVENUNK Lorri Insurance:SELF PAY [facility] Number: Effective Repository Date:2018-04-29 04/15/2018 Caroline Benitez Primary Brian D Melvin [id number] Insurance:AETNAPolicy HardmanDOB: Community [place] Number: [id number] [place] [id number] Repository [address]Sbu: (330) Date:6124-09-99MI [phone] (HP) [id number] DAPHNE DICKINSON [address]ME: 04/15/2018 Secondary NOT GIVENUNK Lorri Insurance:SELF PAY [facility] Number: Effective Repository Date:2018-04-15 04/14/2018 Caroline Benitez Primary Brian D Lorri [id number] Insurance:AETNAPolicy HardmanDOB: Community [place] Number: [id number] [place], [place] [id number] Repository [address]Ouj: (330) Date:8925-56-96JS [phone] (HP) [id number] DAPHNE DICKINSON [address]NV: 04/14/2018 Secondary NOT GIVENUNK Lorri Insurance:SELF PAY [facility] Number: Effective Repository Date:2018-04-13 04/14/2018 Caroline Benitez Primary Brian D Lorri [id number] Insurance:AETNAPolicy HardmanDOB: Community [place] Number: [id number] [place], [place] [id number] Repository [address]Jda: (330) Date:7840-12-25EI [phone] (HP) [id number] DAPHNE DICKINSON [address]YW: 04/14/2018 Secondary NOT GIVENUNK Lorri Insurance:SELF PAY [facility] Number: Effective Repository Date:2018-04-14 04/14/2018 Caroline Blackmon [id number] Insurance:Parmjit SalinasmanDOB: [facility] Number: [id number] [place], [place] [id number] Repository [address]Iqp: 330) Date:2188-46-92QN [phone] ( 359[address]YC DAPHNE DICKINSON [address]LK: 04/14/2018 Secondary NOT GIVENMICHELLE [place] Insurance:SELF PAY [facility] Number: Effective Repository Date:2018-04-14
== END ==
PROVIDERS: Visit Provider Obstetrics & Gynecology
DX: Z12.4 Encounter for screening for malignant neoplasm of cervix (principal)
CPT/HCPCS: 88175; G0145

== ENCOUNTER → 2018-08-27 15:08 | Outpatient (CLI) | payer BC, SELFPAY ==
[2018-04-14 03:14] VITALS: BMI 34.9
--- NOTE | 2018-08-27 15:12 | BI_ITS ---
MAMMOGRAPHY - BILATERAL SCREENING REASON FOR EXAM: Female, 63 years old. Routine annual screening examination. PERTINENT HISTORY: Sister with breast cancer. Grandmother with breast cancer. TECHNIQUE: Digital bilateral breast tasia (3D mammographic acquisition) in the CC and MLO projections. 2-D mediolateral oblique (MLO) and craniocaudad (CC) views of both breasts were obtained. CAD: Full Field Digital Mammography with Computer Added Detection was performed. COMPARISON: Comparison is made with prior study dated July 19, 2017 and May 30, 2016. FINDINGS: Breast Composition: The breasts are heterogeneously dense, which may obscure small masses. There are no dominant masses or suspicious calcifications. No other significant abnormalities are identified. There has been no significant change since the prior study. BI/SCREENING MAMM (CAD), BILAT IMPRESSION: Stable bilateral screening mammogram. Yearly follow-up mammogram recommended. (A) ASSESSMENT CATEGORY: BIRADS Category 1: Negative. A letter regarding these results will be sent to the patient by the facility within 30 days. Approximately 10% of breast cancers are not detected by mammography. A normal mammogram should not delay biopsy of a clinically suspicious abnormality. [id number] Electronically Signed: Jose Luis Li MD at 11:03 EST Tel [phone], Service support ,
--- OUTSIDE RECORDS SUMMARY | 2018-11-01 14:26 | XMS RPT_ITS ---
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 PAYER SUBSCRIBER SOURCE 08/27/2018 CAROLINE Escoto [place] [id number] Insurance:ANTHEMPolic HardmanDOB[facility] y Number: [id number] [id number] Repository [address]Exq: (896) Date:9438-80-48PJ [phone] () [address]06[address], [place] [address]YL: 08/27/2018 Secondary NOT GIVENUNK [place] Insurance:SELF PAY [facility] Number: Effective Repository Date:2018-07-08 07/30/2018 Caroline Benitez Primary Brian D [place] [id number] Insurance:AETNAPolicy HardmanDOB: [facility] [place] Number: [id number], [place] [id number] Repository [address]Ttr: (330) Date:5263-74-51OO [phone] () [id number] [place] [address]AJ: 07/30/2018 Secondary NOT GIVENUNK [place] Insurance:SELF PAY [facility] Number: Effective Repository Date:2018-07-30 05/26/2018 Caroline Benitez Primary Brian D [place] [id number] Insurance:AETNAPolicy HardmanDOB: Community [place] Number: [id number], [place] [id number] Repository [address]Kfl: (330) Date:7128-06-17KG [phone] () [address]TJ [place] [address]YQ: 05/26/2018 Secondary NOT GIVENUNK [place] Insurance:SELF PAY [facility] Number: Effective Repository Date:2018-05-22 05/08/2018 Caroline Benitez Primary Brian D [place] [id number] Insurance:AETNAPolicy HardmanDOB: [facility] [place] Number: [id number] [id number] Repository [address]Yxz: (330) Date:6656-36-58VC [phone] () [id number] [place] [address]OO: 05/08/2018 Secondary NOT GIVENUNK [place] Insurance:SELF PAY [facility] Number: Effective Repository Date:2018-05-08 04/29/2018 Caroline Benitez Primary Brian D [place]ri [id number] Insurance:AETNAPolicy HardmanDOB: Community [place] Number: [id number], [place] [id number] Repository [address]Ify: (330) Date:8739-95-38VT [phone] (HP) [id number] DAPHNE DICKINSON [address]MO: 04/29/2018 Secondary NOT GIVENUNK [place] Insurance:SELF PAY [facility] Number: Effective Repository Date:2018-04-29 04/15/2018 Caroline Benitez Primary Brian D [place] [id number] Insurance:AETNAPolicy HardmanDOB: Community [place] Number: [id number], [place] [id number] Repository [address]Fud: (330) Date:7977-16-80ML [phone] (HP) [id number] DAPHNE DICK[place] [address]OU: 04/15/2018 Secondary NOT GIVENUNK [place] Insurance:SELF PAY [facility] Number: Effective Repository Date:2018-04-15 04/14/2018 Caroline Benitez Primary Brian D Lorri [id number] Insurance:AETNAPolicy HardmanDOB: Community [place] Number: [id number], [place] [id number] Repository [address]Atp: (330) Date:7374-48-58JQ [phone] (HP) [id number] DAPHNE DICKINSON [address]NU: 04/14/2018 Secondary NOT GIVENUNK Lorri Insurance:SELF PAY [facility] Number: Effective Repository Date:2018-04-13 04/14/2018 Caroline Benitez Primary Brian D Lorri [id number] Insurance:AETNAPolicy HardmanDOB: Community [place] Number: [id number], [place] [id number] Repository [address]Lwc: (330) Date:9016-78-66JI [phone] (HP) [id number] DAPHNE DICKINSON [address]AK: 04/14/2018 Secondary NOT GIVENUNK [place] Insurance:SELF PAY [facility] Number: Effective Repository Date:2018-04-14 04/14/2018 Caroline [place] [id number] Insurance:Parmjit SalinasmanDOB: [facility] Number: [id number] [place] [id number] Repository [address]Yet: 330) Date:8263-89-08UX [phone] ( [id number] D[place] [address]SC: 04/14/2018 Secondary NOT GIVENMICHELLE [place] Insurance:SELF PAY [facility] Number: Effective Repository Date:2018-04-14
== END ==
PROVIDERS: Family Provider Family Medicine; PCP Family Medicine; Visit Provider Obstetrics & Gynecology
DX: Z12.31 Encounter for screening mammogram for malignant neoplasm of breast (principal)
CPT/HCPCS: 77063; 77067

== ENCOUNTER → 2018-11-06 14:32 | Outpatient (CLI) | payer BC, SELFPAY ==
[2018-11-06 16:20] LABS: Microalbumin,Random Urine < 5.0 mg/L (NO RANGE EST.)
[2018-11-06 16:21] LABS: ALB/GLOB Ratio 1.3 RATIO (0.9-2.4); AST(SGOT) 18 U/L (15-37); Alanine Aminotransfer ALT/SGPT 22 U/L (13-56); Albumin, Serum 3.9 g/dL (3.2-5.0); Alkaline Phosphatase 138 U/L (45-117); Anion Gap 6 (5-15); BUN 10 mg/dL (7-18); BUN/Creat Ratio 14.8 RATIO (10-20); Calcium,Total 9.1 mg/dL (8.5-10.1); Chloride 104 mmol/L (98-107); Creatinine, Serum 0.68 mg/dL (0.55-1.02); EST Glomerular Filtration Rate 94 mL/min (>60); Est Glom Filt Rate - Afr Amer 114 mL/min (>60); Globulin 2.9 g/dL (2.2-4.2); Glucose 82 mg/dL (74-106); Potassium 4.3 mmol/L (3.5-5.1); Protein, Total 6.8 g/dL (6.4-8.2); Sodium Level 137 mmol/L (136-145); Thyroid Stim Hormone (TSH) 2.44 uIU/mL (0.358-3.74)
[2018-11-06 16:22] LABS: PTHIN 57.4 pg/mL (18.4-80.1)
== END ==
PROVIDERS: Family Provider Family Medicine; PCP Family Medicine; Referring Provider Family Medicine; Visit Provider Family Medicine
DX: I10 Essential (primary) hypertension (principal); E07.9 Disorder of thyroid, unspecified
CPT/HCPCS: 36415; 80053; 82043; 82570; 83970; 84443

== ENCOUNTER → 2018-11-26 | Outpatient (CLI) | payer BC, SELFPAY ==
[2018-04-14 03:14] VITALS: BMI 34.9
--- NOTE | 2018-11-26 08:09 | US_ITS ---
STUDY: THYROID ULTRASOUND REASON FOR EXAM: Female, 63 years old. Asymmetric thyroid, difficulty swallowing TECHNIQUE: Ultrasound evaluation of the thyroid was performed with real-time and static mesa-scale imaging. COMPARISON: None. FINDINGS: RIGHT LOBE: The right lobe of the thyroid gland measures 4 x 1.7 x 1.3 cm. There is a homogeneous echotexture. There are no demonstrated solid, cystic or complex lesions. LEFT LOBE: The left lobe of the thyroid gland measures 4 x 1.4 x 1.3 cm. There is a homogeneous echotexture. There is a 4 x 4 x 3 mm lower pole solid nodule with well-circumscribed margins. ISTHMUS: The isthmus measures 4 mm . The regional lymph nodes are normal. US/Thyroid IMPRESSION: 4 mm left lower pole thyroid nodule. Otherwise, normal thyroid ultrasound. Electronically Signed: Jamie Lopez, at 13:30 EDT Tel , Service support ,
== END | disposition home or self-care (01) ==
PROVIDERS: Family Provider Family Medicine; PCP Family Medicine; Referring Provider Family Medicine; Visit Provider Family Medicine
DX: E07.9 Disorder of thyroid, unspecified (principal)
CPT/HCPCS: 76536

== ENCOUNTER → 2019-07-23 15:37 | Outpatient (CLI) | payer OTHER, SELFPAY ==
[2018-04-14 03:14] VITALS: BMI 34.9
[2019-07-23 18:01] LABS: ALB/GLOB Ratio 1.1 RATIO (0.9-2.4); AST(SGOT) 18 U/L (15-37); Alanine Aminotransfer ALT/SGPT 25 U/L (13-56); Albumin, Serum 3.6 g/dL (3.2-5.0); Alkaline Phosphatase 153 U/L (45-117); Anion Gap 7 (5-15); BUN 9 mg/dL (7-18); BUN/Creat Ratio 13.1 RATIO (10-20); Calcium,Total 8.7 mg/dL (8.5-10.1); Chloride 104 mmol/L (98-107); Creatinine, Serum 0.69 mg/dL (0.55-1.02); EST Glomerular Filtration Rate 92 mL/min (>60); Est Glom Filt Rate - Afr Amer 112 mL/min (>60); Globulin 3.3 g/dL (2.2-4.2); Glucose 94 mg/dL (74-106); Potassium 3.7 mmol/L (3.5-5.1); Protein, Total 6.9 g/dL (6.4-8.2); Sodium Level 138 mmol/L (136-145)
== END ==
PROVIDERS: Family Provider Family Medicine; PCP Family Medicine; Referring Provider Family Medicine; Visit Provider Family Medicine
DX: I10 Essential (primary) hypertension (principal)
CPT/HCPCS: 36415; 80053

== ENCOUNTER → 2019-10-06 16:44 | Outpatient (CLI) | payer OTHER, SELFPAY ==
[2018-04-14 03:14] VITALS: BMI 34.9
[2019-10-09 05:07] LABS: Age Gdln ACOG Testing 30-65 (.)
[2019-10-09 05:44] LABS: HPV APTIMA, High Risk Negative (Negative); HPV Reflexed? YES, CHARGE PATIENT
== END ==
PROVIDERS: PCP Family Medicine; Referring Provider Obstetrics & Gynecology; Visit Provider Obstetrics & Gynecology
DX: Z12.4 Encounter for screening for malignant neoplasm of cervix (principal)
CPT/HCPCS: 87624; 88175; G0145

== ENCOUNTER → 2019-10-08 13:42 | Outpatient (CLI) | payer OTHER, SELFPAY ==
--- NOTE | 2019-10-08 13:47 | BI_ITS ---
MAMMOGRAPHY - BILATERAL DIAGNOSTIC REASON FOR EXAM: Female, 64 years old. FAM HX SISTER AGE 61, MAT GMA AGE ? -- RT LUMP X 2 WEEKS WITH INCREASED TENDERNESS-MARKED WITH MARKER -DEEP RETROAREOLAR, SLIGHT NIPPLE INVERSION -- NO SX PERTINENT HISTORY: Non-contributory. TECHNIQUE: Digital examination. Mediolateral oblique (MLO) and craniocaudad (CC) views of both breasts were obtained. CAD: COMPARISON: None. FINDINGS: Breast Composition: Heterogeneously dense There are no dominant masses or suspicious calcifications. No other significant abnormalities are identified. The patient notes a palpable density in the right retroareolar area and the technologist also can palpate this lesion. For this reason, a targeted right breast ultrasound will be performed for additional evaluation. BI/DIAG MAMM W/CAD, BILAT IMPRESSION: Heterogeneously dense internal structures identified not the patient describes a palpable density in the right retroareolar area. For this reason a targeted right breast ultrasound will be performed for additional evaluation. ASSESSMENT CATEGORY: BIRADS Category 0: Incomplete. Need additional imaging evaluation. A letter regarding these results will be sent to the patient by the facility within 30 days. FOLLOW UP RECOMMENDATION: Approximately 10% of breast cancers are not detected by mammography. A normal mammogram should not delay biopsy of a clinically suspicious abnormality. Electronically Signed: Enoch Portillo, at 16:48 EST Tel , Service support ,
--- NOTE | 2019-10-08 13:47 | US_ITS ---
STUDY: ULTRASOUND BREAST - RIGHT REASON FOR EXAM: Female, 64 years old. TECHNIQUE: Axial and longitudinal images of the RIGHT breast were performed with a high resolution ultrasound transducer. # OF IMAGES: 23 COMPARISON: Recent mammogram obtained on 10/08/2019 FINDINGS: RIGHT Breast: There is a lesion in the right retroareolar area. The lesion measures 1.0 cm in size. cm. The palpable density noted by the patient corresponds to some dilated ducts in the retroareolar area. This represents a benign process. Posterior Enhancement: Yes Posterior Shadowing: No Margins: Sharply defined US/Breast Limited Unilateral IMPRESSION: The palpable retroareolar density corresponds to some crossing dilated retroareolar ducts. ASSESSMENT CATEGORY: BIRADS Category 2: Benign. A letter regarding these results will be sent to the patient by the facility within 30 days. Electronically Signed: Enoch Portillo, at 16:42 EST Tel , Service support ,
== END ==
PROVIDERS: PCP Family Medicine; Referring Provider Obstetrics & Gynecology; Visit Provider Obstetrics & Gynecology
DX: N63.10 Unspecified lump in the right breast, unspecified quadrant (principal)
CPT/HCPCS: 76642; 77062; 77066; G0279

== ENCOUNTER → 2019-12-15 15:56 | Outpatient (CLI) | payer OTHER, SELFPAY ==
[2018-04-14 03:14] VITALS: BMI 34.9
--- NOTE | 2019-12-15 15:59 | RAD_ITS ---
STUDY: X-RAY CHEST REASON FOR EXAM: Female, 64 years old. pain around the right sternoclavicular joint TECHNIQUE: PA and lateral COMPARISON: 04/14/2018. FINDINGS: The lungs are clear and expanded. There is no demonstrated pleural abnormality. Normal size heart. Normal mediastinum and carlito. Normal visualized pulmonary arteries. Normal visualized aortic arch and descending thoracic aorta. There are stable multilevel degenerative changes of the thoracic spine with disc space narrowing and osteophyte formation. Normal visualized ribs, clavicles, and shoulders. There is no demonstrated abnormality of the visualized soft tissue structures of the upper abdomen. RAD/Chest PA and Lateral IMPRESSION: No acute process Evaluation for sternal clavicular joint pathology is limited by chest radiographs. If there''s clinical concern this should be correlated with clinical history and physical exam and can be further evaluated with CT. Stable degenerative changes of the thoracic spine Electronically Signed: Holland Hedrick, at 16:23 EDT Tel , Service support ,
== END ==
PROVIDERS: PCP Family Medicine; Referring Provider Family Medicine; Visit Provider Family Medicine
DX: M24.9 Joint derangement, unspecified (principal)
CPT/HCPCS: 71046

== ENCOUNTER 2020-03-11 12:30 | Outpatient (RCR) | payer OTHER, SELFPAY ==
--- NOTE | 2019-12-31 07:55 | HP.OTEVAL_ITS ---
Patient's Visit Information ALVIN PATEL is a 64 year old F, referred to Occupational Therapy by Dr. William Feldman MD, with a diagnosis of right extensor wrist tenosynivitis, AC joint tender. 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 - ADLs Dressing: Overhead shirt Bathing: Wash hair Household: Sweep/mop - Pain right wrist 2 Pain Intensity Range: 3 right shoulder/AC 4 Pain Intensity Range: 6, 8 - ROM Shoulder: right 120 pain up right side of neck left 150 Elbow: right/ left WNL Forearm: right/left WNL Wrist: right 60/30 with pain left 65/65 - Strength Shoulder: right 3+/5 left 4/5 Exterminator Termite: right 40# left 35# Lateral Pinch: right 4# with pain left 4# Tripod Pinch: right 4# left 4# Tip-to-Tip Pinch: right 2# left 2# Strength Comments: pt demo with a decrease in right UE strength -pain limiting pts ability - Sensation Sensation Comments: denies. states tingling with position on dorsom of forearm (radial nerve on left ) - Quick DASH-Disab of Arm,Shoulder& Hand Quick DASH Score: 45.0000 - Goals Goal:: PT will demo UB MMT at 4/5 by d/c to increase pts ind. with ADLs and IADLs Goal:: pt will demo a increase in right shoulder ROM equal to unaffected side by d/c to increase pts ind. with ADLS and IADLs. Goal:: pt will report pain no greater than 1/10 with use of right UE with ADLs by d/c Goal:: pt will impliment 3 work station changes to decrease stress on UE/neck/back by d/c - Rehabilitation General Assessment: Pt demo with limited right shoulder ROM, pain on right side of neck with motion- poor sitting posture- decreased understanding of work station ergonomics. Pt limited with ADLs and IADLS due to pain. Pt would benefit from skilled OT services 2x week for 5 weeks. Today therapist gave information on work ergo. for computer station, pec, stretches (3 positions) and ed. pt on use of right wrist brace, and neck retraction into mat. Pt instructed to perform ex. slow and if she had pain to stop. pt given handouts and demo understanding and agree to POC. Rehabilitation Potential: Good - Anticipated Interventions A/AAROM/PROM, Strengthening, Triggerpoint Release, Modalities, Orthoses, Joint Protection/Energy Conservation, Ergonomic Education, Home Program - Visit Plan Frequency: 2x /Week Duration: 4 Weeks General Plan: ed. on work station ergo, AROM/AAROM of shoulder/neck and wrist, strength postural muscles, decrease pain. will initiate AAROM of right shoulder- ie ortega/ supine AAROM/ if pain is less shoulder/scapula strengthening isometric/or band depending on pts ability TEXT: Thank you for the opportunity to evaluate your patient. For Medicare and Medicare HMO plans, please review the plan of care and approve it. It will need to be FAXED BACK to us at [phone] for Medicare purposes. Please let me know if there are questions or concerns regarding this plan of care. Physician Signature: Date:
--- NOTE | 2020-01-24 09:18 | HP.PTEVAL ---
Patient's Visit Information ALVIN PATEL is a 64 year old F referred to Physical Therapy by Dr. William Feldman MD with a diagnosis of Neck and shoulder pain, R side. Date of Evaluation: 01/24/20 Physical Therapist: Refugio Rutledge DPT - Visit Plan Frequency: 1-2x /Week Duration: 6-8 weeks Plan: Start with taping, strapping of SC joint to immobilize the joint a bit. Add in R shoulder ROM as tolerated. Once able progress to AROM of R shoulder with in pain free ranges, progressing to strengthening once able. - Subjective Pt is here today for her initial evaluation with diagnosis of shoulder and neck pain on R side. Pt. reports having increased pain for ~2 months at this point in time. Pt. reports having R sided neck pain for a few days then woke up one day with increased bump (swelling) at R sternoclavicular joint. Pt. reports swelling has not gone down. 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 Pt. reports minimal pain at rest. Pt. has been seeing OT, which has focused on stretching. She reports feeling a little bit better, but is still very tender. 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 Pt. is hopeful to reduce her symptoms in order to get back to all of her recreational and work activities without limitations. - Pain R SC joint Pain Intensity (Out of 10): 4 Pain Intensity Range: 2, 10 - Objective POSTURE: Pt. has slight R cervical side bend. Pt. elevated R shoulder as well. B forward shoulder. Pt. has increased elevation of clavical at SC joint, normal AC joint. PALPATION: Pt. is tender with palpation of SC joint, marked edema around the SC joint with clavical elevation. Normal AC joint, no pain with palpation of distal clavicle. Pt. is also tender at SCM on R side. No L sided pain throughout. Pt. is stiff through SC joint painfull with inferior and AP mobs. NEURO: Pt. has normal sensation and and DTR of BUEs. ROM: CERVICAL SPINE: flexion- nil loss NE, extension nil loss- mild increase NW on R side, rotation R nil loss mild increase NW at R SCM, rotation L- nil loss NE, SB L min loss tightness on R side, SB R nil loss NE. L shoulder- full motion NE. R shoulder- flexion 175deg- pain starting at 130deg, abd 150deg pain starting at 90deg. IR full NE, ER C4 mild incraese nW at SC joint. MMT: LUE- 5/5 throghout no pain. RUE- shoulder- flexion 4/5 increase nW, abd 4+/5 increase NW, ER 5/5 NE, IR 5/5 NE, ext 5/5 NE - Special Tests R Shoulder Lift Off Test - Subscapular Tear: Negative R Shoulder Drop Sign - IS Test: Negative R Shoulder Empty Can - SS: Negative R Shoulder Belly Press - SupScap: Negative R Shoulder Neer - Impingement: Negative R Shoulder Rosales Yfn - Impingement: Negative R Shoulder AC Resisted - AC: Negative R Shoulder Shrug Sign - OA/Adhesive Capsulitis: Negative - Goals Goal 1:: LTG: Pt. to be I with HEP. Goal Time Frame: 4-6 Weeks Goal 2:: STG: Pt. to sleep without increase in symptoms Goal Time Frame: 2-4 Weeks Goal 3:: LTG: Pt. have full R shoulder ROM without increase in symptoms. Goal Time Frame: 4-6 Weeks Goal 4:: STG: Pt. complete all work duties without increase in symptoms. Goal Time Frame: 4-6 Weeks Goal 5:: LTG: Pt. to have increased R shoulder strength by 1/2 grade of all effected musculature. Goal Time Frame: 4-6 Weeks - Rehabilitation Potential Physical Therapy Diagnosis: Pt. has signs and symptoms consistent with R sternoclavicular joint pain. Pt. had no mech of injury, so I feel SC ligament injury would been rare. She could have OA in this region causing it to flare up and be swollen, also rare, but I feel more likely. I will treat it annel stability to the SC joint, while maintaining decent painfree motion of her R shoulder. Rehabilitation Potential: Fair - Anticipated Interventions Patient/Client Instruction: Educate patient on: Condition, Plan of Care, Risk Factors, Benefits of Fitness Program For the Purpose of:: To improve health and function, To foster healthy habits, To improve decision making, To facilitate caregiver knowledge, To improve self management, To prevent re-injury, To improve ability to perform tasks related to life management, To improve tolerance to ADL's Therapeutic Exercise to Include: Strength training, Postural training, Flexibilty training, Passive ROM, Active ROM, Mariposa Exercises, Scapular Strength/Stabilization For the Purpose of:: To decrease pain, To decrease swelling/inflammation, To increase ROM, To improve nutrient delivery to tissue, To increase oxygenation perfusion, To improve muscle performance and motor function, To improve ability to perform ADL's, To increase tolerance to activity/condition/position, To improve performance and independence with ADL's, To decrease level of supervision to perform tasks, To improve health of tissue, To decrease soft tissue restriction, To increase flexibility/ROM IF ES: Yes Cryotherapy (ice pack, ice massage): Yes Ultrasound (thermal/non thermal): Yes For the Purpose of:: To decrease pain, To improve nutrient delivery to tissue, To increase oxygenation perfusion, To improve muscle performance and motor function Thank you for the opportunity to evaluate your patient. For Medicare and Medicare HMO plans, please review the plan of care and approve it. It will need to be FAXED BACK to us at [phone] for Medicare purposes. For Medicare only, by signing this I certify the plan of care. Please let me know if there are questions or concerns regarding this plan of care. Physician Signature: Date:
--- NOTE | 2020-02-24 15:26 | HP.PTREVAL_ITS ---
Dr. William Feldman MD, It has been my pleasure to treat ALVIN PATEL over the last 5 visits for Neck and shoulder pain, R side. Please see the progress note below for an update on the physical therapy plan of care! Subjective: Pt. arrives today with reports of similar issues. Pt. repots being frustrated. Pt. is concerned as she keeps doing okay with the tapping, but once this wears off she is back to pain again. Pt. reports overall being 50% better, but she still has an incraesed mass at SC joint region. Pt. is concern wtih the lack of change of this tissue. Objective/Function: Pt. again tolerated PT well. She is blending tank tender through her R aspect of her chest, pec region. Pt. has increased mass of tissue/edema at R SC joint region. No pain at clavicle and no UT pain. Pt. is concerned about lasting effects and not consistent relief. I talked to her and she agrees about going back to physician to determine if further evaluation is required. Plan Plan: Pt. to follow up with physician to determine if further test is required. Pt. has had some mild relief, but is still concerned about her increased tissue mass/edema at R SC joint. Pt. to follow up with physician then back to PT if needed. Goals Goal 1:: LTG: Pt. to be I with HEP. Goal Time Frame: 4-6 Weeks Goal Progress: Goal Met Goal 2:: STG: Pt. to sleep without increase in symptoms Goal Time Frame: 2-4 Weeks Goal Progress: Progressing Goal 3:: LTG: Pt. have full R shoulder ROM without increase in symptoms. Goal Time Frame: 4-6 Weeks Goal Progress: Progressing Goal 4:: STG: Pt. complete all work duties without increase in symptoms. Goal Time Frame: 4-6 Weeks Goal Progress: Progressing Goal 5:: LTG: Pt. to have increased R shoulder strength by 1/2 grade of all effected musculature. Goal Time Frame: 4-6 Weeks Goal Progress: Progressing Anticipated Interventions Patient/Client Instruction: Educate patient on: Condition, Plan of Care, Risk Factors, Benefits of Fitness Program For the Purpose of:: To improve health and function, To foster healthy habits, To improve decision making, To facilitate caregiver knowledge, To improve self management, To prevent re-injury, To improve ability to perform tasks related to life management, To improve tolerance to ADL's Therapeutic Exercise to Include: Strength training, Postural training, Flexibilty training, Passive ROM, Active ROM, Mariposa Exercises, Scapular Strength/Stabilization For the Purpose of:: To decrease pain, To decrease swelling/inflammation, To increase ROM, To improve nutrient delivery to tissue, To increase oxygenation perfusion, To improve muscle performance and motor function, To improve ability to perform ADL's, To increase tolerance to activity/condition/position, To improve performance and independence with ADL's, To decrease level of supervision to perform tasks, To improve health of tissue, To decrease soft tissue restriction, To increase flexibility/ROM IF ES: Yes Cryotherapy (ice pack, ice massage): Yes Ultrasound (thermal/non thermal): Yes For the Purpose of:: To decrease pain, To improve nutrient delivery to tissue, To increase oxygenation perfusion, To improve muscle performance and motor function Please do not hesitate to contact me at [phone] by phone or if you have questions or concerns regarding this new plan of care! Sincerely, Refugio Rutledge DPT
== END 2020-08-08 11:23 | disposition home or self-care (01) ==
LOC: PT 12:30
PROVIDERS: PCP Family Medicine; Referring Provider Family Medicine; Visit Provider Family Medicine
DX: M25.511 Pain in right shoulder (principal); M45.2 Ankylosing spondylitis of cervical region; M65.88 Other synovitis and tenosynovitis, other site
CPT/HCPCS: 97035; 97110; 97161; 97166; 97530

== ENCOUNTER → 2020-10-10 15:25 | Outpatient (CLI) | payer BC, SELFPAY ==
[2018-04-14 03:14] VITALS: BMI 34.9
[2020-10-10 17:51] LABS: Absolute Neutrophil Count 5.7 X10^3/uL (2.0-7.7); Basophil# 0.06 X10^3/uL; Basophil% 0.7 % (0-1); Eosinophil# 0.16 X10^3/uL; Eosinophils% 1.9 % (0-5); Hematocrit 45.2 % (37-47); Hemoglobin 14.5 g/dL (12.0-15.0); Lymphocyte % 20.9 % (19-41); Mean Corp Hgb Conc 32.1 g/dL (32-36); Mean Corpuscular Hgb 32.2 pg (27.0-32.0); Mean Corpuscular Volume 100.2 fL (81-99); Mean Platelet Vol. 9.7 fl (6.2-12.0); Monocyte# 0.83 X10^3/uL; Monocyte% 9.6 % (0-10); NRBC Flagged by Analyzer 0 % (0-5); Neutrophil # 5.73 X10^3/uL (2.7-7.7); Neutrophil % 66.6 % (47-70); Platelet Count 256 K/mm3 (150-450); RBC Distribution Width CV 12.2 % (11.6-14.6); RBC Distribution Width SD 45.9 fl (35.1-43.9); Red Blood Count 4.51 M/mm3 (4.2-5.4); White Blood Count 8.6 K/mm3 (4.4-11.0)
[2020-10-10 18:27] LABS: ALB/GLOB Ratio 1.4 RATIO (0.9-2.4); AST(SGOT) 15 U/L (15-37); Alanine Aminotransfer ALT/SGPT 23 U/L (13-56); Albumin, Serum 3.7 g/dL (3.2-5.0); Alkaline Phosphatase 147 U/L (45-117); Anion Gap 9 (5-15); BUN 14 mg/dL (7-18); BUN/Creat Ratio 17.3 RATIO (10-20); Calcium,Total 9.4 mg/dL (8.5-10.1); Chloride 102 mmol/L (98-107); Creatinine, Serum 0.81 mg/dL (0.55-1.02); EST Glomerular Filtration Rate 76 mL/min (>60); Est Glom Filt Rate - Afr Amer 92 mL/min (>60); Globulin 2.7 g/dL (2.2-4.2); Glucose 101 mg/dL (74-106); Potassium 3.9 mmol/L (3.5-5.1); Protein, Total 6.4 g/dL (6.4-8.2); Sodium Level 138 mmol/L (136-145); Thyroid Stim Hormone (TSH) 2.28 uIU/mL (0.358-3.74)
[2020-10-10 18:39] LABS: Microalbumin,Random Urine < 5.0 mg/L (NO RANGE EST.)
== END ==
PROVIDERS: PCP Family Medicine; Referring Provider Family Medicine; Visit Provider Family Medicine
DX: I10 Essential (primary) hypertension (principal); E66.01 Morbid (severe) obesity due to excess calories; I47.9 Paroxysmal tachycardia, unspecified
CPT/HCPCS: 36415; 80053; 82043; 82570; 84443; 85025

== ENCOUNTER → 2020-11-25 10:19 | Outpatient (CLI) | payer BC, SELFPAY ==
[2018-04-14 03:14] VITALS: BMI 34.9
--- NOTE | 2020-11-25 10:23 | RAD_ITS ---
STUDY: X-RAY - STERNOCLAVICULAR JOINTS REASON FOR EXAM: Female, 65 years old. OSTEO TECHNIQUE: 3 view(s) of the bilateral sternoclavicular joints were obtained. COMPARISON: None. FINDINGS: Suspect superior subluxation or dislocation of the right sternoclavicular joint. Normal visualized bilateral clavicles. Normal manubrium. Normal visualized ribs. RAD/S-C Jts Min 3 Views IMPRESSION: Suspect superior subluxation or dislocation the right sternoclavicular joint. Electronically Signed: Jesús Rios MD at 6:37 EDT Tel , Service support ,
--- NOTE | 2020-11-25 10:23 | RAD_ITS ---
STUDY: X-RAY - RIGHT SHOULDER REASON FOR EXAM: Female, 65 years old. OSTEO TECHNIQUE: 4 view(s) of the shoulder. COMPARISON: None. FINDINGS: Normal glenohumeral articulation. Normal acromioclavicular joint. Normal acromion. Normal humeral head and visualized proximal humerus. The soft tissue structures are unremarkable. Normal visualized pulmonary apex. RAD/Shoulder min 2 Views IMPRESSION: Normal x-ray examination of the shoulder. Electronically Signed: Jesús Rios MD at 6:32 EDT Tel , Service support ,
== END ==
PROVIDERS: PCP Family Medicine; Referring Provider Physical Medicine & Rehabilitation; Visit Provider Physical Medicine & Rehabilitation
DX: M19.019 Primary osteoarthritis, unspecified shoulder (principal)
CPT/HCPCS: 71130; 73030

== ENCOUNTER → 2021-01-06 15:09 | Outpatient (CLI) | payer BC, SELFPAY ==
--- NOTE | 2021-01-06 15:12 | MRI_ITS ---
STUDY: MRA OF THE HEAD WITHOUT CONTRAST REASON FOR EXAM: Female, 65 years old. Transient left arm weakness and headache TECHNIQUE: 3-D ocpl-ep-qyhhzg (TOF) imaging was performed with MIPs. The study was performed unenhanced. COMPARISON: None. FINDINGS: Bilateral base of skull carotids, bifurcations, anterior and middle cerebral arteries and proximal branches are patent. Posterior communicating arteries are large in the right and moderate on the left Posterior cerebral arteries and superior cerebellar arteries and proximal branches are patent. Vertebral arteries, basilar arteries are patent. MRI/MRA Head ONLY without Contrast IMPRESSION: 1. Unremarkable [place] and proximal branches. Electronically Signed: Girish García MD at 17:08 EDT Tel , Service support ,
== END ==
PROVIDERS: PCP Family Medicine; Referring Provider Family Medicine; Visit Provider Family Medicine
DX: G44.009 Cluster headache syndrome, unspecified, not intractable (principal)
CPT/HCPCS: 70544

== ENCOUNTER → 2021-01-17 17:20 | Outpatient (CLI) | payer BC, SELFPAY ==
[2018-04-14 03:14] VITALS: BMI 34.9
[2021-01-20 12:58] LABS: HPV APTIMA, High Risk Negative (Negative)
== END ==
PROVIDERS: PCP Family Medicine; Visit Provider Student in an Organized Health Care Education/Training Program
DX: Z12.4 Encounter for screening for malignant neoplasm of cervix (principal)
CPT/HCPCS: 87624; 88175; G0145

== ENCOUNTER → 2021-02-02 08:38 | Outpatient (CLI) | payer BC, SELFPAY ==
--- NOTE | 2021-02-02 08:40 | BI_ITS ---
MAMMOGRAPHY - BILATERAL SCREENING 3-D TOMOSYNTHESIS REASON FOR EXAM: Female, 65 years old. Annual screening mammogram. PERTINENT HISTORY: Maternal grandmother, question age. TECHNIQUE: 2-D mammograms and 3-D Tomosynthesis of the breast (s) were performed. CAD was performed. COMPARISON: 10/08/2019 FINDINGS: The breast composition is composed of scattered fibroglandular density. 2 cm in diameter partially obscured asymmetry best seen on the CC view on the left approximately 4.2 cm behind the nipple. Patient should return for compression spot views of this area. If the area persists, ultrasound will also be needed. Right breast is stable. There has been no significant change since the prior study. BI/SCRN MAMM (CAD)W/MARLO BILAT IMPRESSION: Asymmetry in the left breast best seen on the CC view for which further workup, as outlined above, is recommended. ASSESSMENT CATEGORY: BIRADS Category 0: Incomplete. Need additional imaging evaluation as above. A letter regarding these results will be sent to the patient by the facility within 30 days. FOLLOW UP RECOMMENDATION: Yearly follow up mammogram recommended. (A) Approximately 10% of breast cancers are not detected by mammography. A normal mammogram should not delay biopsy of a clinically suspicious abnormality. Electronically Signed: Paresh Monique MD at 12:15 EDT , Service support ,
== END ==
PROVIDERS: PCP Family Medicine; Referring Provider Student in an Organized Health Care Education/Training Program; Visit Provider Student in an Organized Health Care Education/Training Program
DX: Z12.31 Encounter for screening mammogram for malignant neoplasm of breast (principal)
CPT/HCPCS: 77063; 77067

== ENCOUNTER → 2021-02-07 14:22 | Outpatient (CLI) | payer BC, SELFPAY ==
--- NOTE | 2021-02-07 14:24 | BI_ITS ---
MAMMOGRAPHY - UNILATERAL DIAGNOSTIC: LEFT BREAST REASON FOR EXAM: Female, 65 years old. Abnormal screening mammogram. PERTINENT HISTORY: Sister with breast cancer. Grandmother with breast cancer. TECHNIQUE: Compression spot views of the left breast in the mediolateral oblique and craniocaudad views were obtained. CAD: Full Field Digital Mammography with Computer Added Detection was performed. COMPARISON: Comparison is made with prior examination dated 02/02/2021. FINDINGS: Breast Composition: The breasts are heterogeneously dense, which may obscure small masses. There are no dominant masses or suspicious calcifications. No other significant abnormalities are identified. BI/DIAG MAMM W/CAD, UNILAT IMPRESSION: No abnormalities seen on this examination. Routine mammographic follow-up is recommended. ASSESSMENT CATEGORY: BIRADS Category 2: Benign. A letter regarding these results will be sent to the patient by the facility within 30 days. Approximately 10% of breast cancers are not detected by mammography. A normal mammogram should not delay biopsy of a clinically suspicious abnormality. Electronically Signed: Jose Luis Li MD at 15:43 EDT , Service support ,
== END ==
PROVIDERS: PCP Family Medicine; Referring Provider Student in an Organized Health Care Education/Training Program; Visit Provider Student in an Organized Health Care Education/Training Program
DX: R92.8 Other abnormal and inconclusive findings on diagnostic imaging of breast (principal)
CPT/HCPCS: 77065

== ENCOUNTER → 2021-06-27 15:34 | Outpatient (CLI) | payer BC, SELFPAY ==
[2021-06-27 17:47] LABS: Absolute Lymphocyte Count 2.32 X10^3/uL (0.83-4.51); Absolute Neutrophil Count 6.1 X10^3/uL (2.0-7.7); Basophil# 0.06 X10^3/uL; Basophil% 0.6 % (0-1); Eosinophil# 0.15 X10^3/uL; Eosinophils% 1.6 % (0-5); Hematocrit 45.5 % (37-47); Lymphocyte # 2.32 X10^3/ul (0.83-4.51); Lymphocyte % 24.2 % (19-41); Mean Corpuscular Hgb 32.3 pg (27.0-32.0); Mean Corpuscular Volume 97.8 fL (81-99); Mean Platelet Vol. 9.9 fl (6.2-12.0); Monocyte# 0.89 X10^3/uL; Monocyte% 9.3 % (0-10); NRBC Flagged by Analyzer 0 % (0-5); Neutrophil # 6.13 X10^3/uL (2.7-7.7); Neutrophil % 63.9 % (47-70); Platelet Count 263 K/mm3 (150-450); RBC Distribution Width CV 12.5 % (11.6-14.6); RBC Distribution Width SD 44.7 fl (35.1-43.9); Red Blood Count 4.65 M/mm3 (4.2-5.4); White Blood Count 9.6 K/mm3 (4.4-11.0)
[2021-06-27 17:58] LABS: Anion Gap 7 (5-15); BUN 17 mg/dL (7-18); BUN/Creat Ratio 15.3 RATIO (10-20); Calcium,Total 9.3 mg/dL (8.5-10.1); Chloride 102 mmol/L (98-107); Creatinine, Serum 1.11 mg/dL (0.55-1.02); EST Glomerular Filtration Rate 53 mL/min (>60); Est Glom Filt Rate - Afr Amer 64 mL/min (>60); Glucose 96 mg/dL (74-106); Potassium 4.6 mmol/L (3.5-5.1); Sodium Level 135 mmol/L (136-145)
== END ==
PROVIDERS: PCP Family Medicine; Referring Provider Family Medicine; Visit Provider Family Medicine
DX: Z00.00 Encounter for general adult medical examination without abnormal findings (principal); I27.20 Pulmonary hypertension, unspecified; I10 Essential (primary) hypertension
CPT/HCPCS: 36415; 80048; 85025

== ENCOUNTER 2021-09-25 14:52 | Outpatient (CLI) | payer BC, SELFPAY ==
[2021-09-25 18:16] LABS: Absolute Lymphocyte Count 1.88 X10^3/uL (0.83-4.51); Absolute Neutrophil Count 5.3 X10^3/uL (2.0-7.7); Basophil% 1.2 % (0-1); Eosinophil# 0.27 X10^3/uL; Eosinophils% 3.2 % (0-5); Hemoglobin 14.4 g/dL (12.0-15.0); Lymphocyte # 1.88 X10^3/ul (0.83-4.51); Mean Corp Hgb Conc 32.7 g/dL (32-36); Mean Corpuscular Hgb 32.3 pg (27.0-32.0); Mean Corpuscular Volume 98.7 fL (81-99); Mean Platelet Vol. 9.8 fl (6.2-12.0); Monocyte# 0.95 X10^3/uL; Monocyte% 11.1 % (0-10); NRBC Flagged by Analyzer 0 % (0-5); Neutrophil # 5.33 X10^3/uL (2.7-7.7); Neutrophil % 62.1 % (47-70); Platelet Count 261 K/mm3 (150-450); RBC Distribution Width CV 12.6 % (11.6-14.6); RBC Distribution Width SD 45.4 fl (35.1-43.9); Red Blood Count 4.46 M/mm3 (4.2-5.4); White Blood Count 8.6 K/mm3 (4.4-11.0)
[2021-09-25 18:32] LABS: Vitamin D,25 Hydroxy 41.1 ng/mL
[2021-09-25 18:36] LABS: Cholesterol 113 mg/dL (200); High Density Lipoprotein 67 mg/dL; Triglycerides 79 mg/dL; Very Low Density Lipoprotein 16 mg/dL (5-40)
[2021-09-25 18:40] LABS: Hemoglobin A1c 5.3 % (3.8-5.6)
[2021-09-25 18:48] LABS: Microalbumin,Random Urine < 5.0 mg/L (NO RANGE EST.)
[2021-09-26 11:29] LABS: Magnesium 2.2 mg/dL (1.6-2.6)
== END 2021-09-25 23:59 | disposition home or self-care (01) ==
LOC: MFPLAB 14:53
PROVIDERS: PCP Family Medicine; Visit Provider Family Medicine
DX: I27.20 Pulmonary hypertension, unspecified (principal); E66.9 Obesity, unspecified; I10 Essential (primary) hypertension; E55.9 Vitamin D deficiency, unspecified
CPT/HCPCS: 36415; 80061; 82043; 82306; 82570; 83036; 83735; 85025

== ENCOUNTER 2021-11-30 05:53 | Day surgery (SDC) | payer BC, SELFPAY ==
[2021-11-30] VITALS (7 sets, daily range): BP systolic 96–118; BP diastolic 55–82; PULSE 59–77; RESP 16–18; TEMP 36.1–37; O2SAT 95–99; BMI 34.7
[2021-11-30] MEDS: Lactated Ringers 1,000 ML 15 ML IV (06:42)
--- NOTE | 2021-11-30 06:56 | PCM.HP.BLA ---
History and Physical Date of Admission: 11/30/21 66 y/o F w/ PMHx: CHF , HTN, HLD, Hx TIA, Obesity, Allergic Rhinitis who presents today for screening colonoscopy. She is not having any problems at this time. She is not having any chest pain or shortness of breath. She denies having any nausea. She does have occasional reflux disease but is not bothering her because she is controlled with medicine and diet. Past Medical History Past Medical History (Chronic Problems): Chronic Problems Heart failure (Chronic) HTN (hypertension) (Chronic) HLD (hyperlipidemia) (Chronic) GERD (gastroesophageal reflux disease) (Chronic) Allergic rhinitis (Chronic) Allergies unknown antibiotic Allergy Unknown Physical Examination: General: awake, alert, oriented x 3 and cooperativesince initial ED presentation. Skin: normal color, turgor, no icterus, cyanosis. HEENT: AT/NC, EOMI, PERRLA, MMM, no carotid bruits or JVD noted. Lungs: CTA bilaterally, moderate effort, mild decrease BL bases, no rales, ronchi or wheezing. Heart: Regular rate and rhythm; no gallop, rub audible. Abdomen: soft, obese, NTTP, ND, normal BS, no HSM. Extremities: no cyanosis, clubbing, or edema. Neurological: patient awake, alert, oriented x 3; cognitive function intact; pupils equally reactive to light and accomodation; cranial nerves II-XII grossly normal, moving all 4 extremities, no focal deficits, strength mildly globally decreased secondary to acute presentation. Psychiatric: affect appears restless, no acute evidence of depressive or anxiety feelings. Assessment and plan: 66-year-old comes in for screening colonoscopy. She was explained alternatives, risk, benefits including not withstanding bleeding, infection, sepsis, perforation, need for emergent . She has an ASA of 3.
--- NOTE | 2021-11-30 07:00 | COLBX_PTH ---
PATIENT: ALVIN PATEL LOC: EN U#:[id number] AGE/SX: 66/F ROOM: RE11/30/[address]: Dr. Nirmal Solis DO : 1955 BED: DIS: 11/30/2021 SPEC #: [id number] RECD: 11/30/21 10:29 STATUS: PARAMJIT REKeyona #: [id number] LAYO: 11/30/21 07:[address]: Nirmal Solis DEPT: SURGICAL PATHOLOGY RECD BY: Lillian Leavitt ENTERED: 11/30/21 13:31 SP TYPE: COLON BX OTHR DR: Dr. William Feldman MD Tissues: Descending colon Procedures: Surgery Specimen Level IV HEADER OPERATION: Colonoscopy ? open access (MAC) with biopsy PRE-OP DIAGNOSIS: Screening TISSUE SUBMITTED: Descending colon polyp MICROSCOPIC DIAGNOSIS Descending colon polyp, biopsy: Tubular adenoma. SAMEER:sam 12/01/2021 MICROSCOPIC DESCRIPTION Slides are reviewed. GROSS DESCRIPTION Received in fixative is one container labeled with the patient's name and designated descending colon polyp. The specimen consists of two irregular fragments of light estrada soft tissue that in aggregate measure 0.6 x 0.3 x 0.1 cm. The specimen is totally submitted in one cassette. / AM:sam 11/30/2021 TC:1 CPT: 40763
--- NOTE | 2021-11-30 07:40 | OP.CCLET_ITS ---
05/10/2022 William Feldman [address] [place] [address] Re : Colonoscopy procedure for Caroline Dobson Dear Dr. Feldman This procedure was performed on November. My impressions and recommendations are as follows: Impressions : - Diverticulosis in the sigmoid colon. - One 5 mm polyp in the sigmoid colon, removed with a cold snare. Resected and retrieved. - The examination was otherwise normal on direct and retroflexion views. Recommendations : - Discharge patient to home. - Resume previous diet. - Continue present medications. - Await pathology results. - Repeat colonoscopy in 5 years for surveillance. My findings are described in the full procedure note, which is enclosed. If I can be of further assistance, please feel free to contact me at . Sincerely, Nirmal Solis, 11/30/2021 7:39:56 AM This report has been signed electronically.
--- NOTE | 2021-11-30 07:40 | OP.COLON_ITS ---
Patient Name: Caroline Dobson Procedure Date: 11/30/2021 7:02 AM Date of : 1955 Age: 66 Procedure: Colonoscopy Indications: Screening for colorectal malignant neoplasm Providers: Nirmal Solis DO Medicines: Sedation Required Anesthesia Staff Assistance Patient Profile: This is a 66 year old female. Refer to note in patient chart for documentation of history and physical. Last Colonoscopy: 5 years ago. Complications: No immediate complications. Procedure: Pre-Anesthesia Assessment: - Prior to the procedure, a History and Physical was performed, and patient medications and allergies were reviewed. The risks and benefits of the procedure and the sedation options and risks were discussed with the patient. All questions were answered and informed consent was obtained. Patient identification and proposed procedure were verified by the physician in the pre-procedure area. Mental Status Examination: alert and oriented. Airway Examination: normal oropharyngeal airway and neck mobility. Respiratory Examination: clear to auscultation. CV Examination: normal. Prophylactic Antibiotics: The patient does not require prophylactic antibiotics. Prior Anticoagulants: The patient has taken no previous anticoagulant or antiplatelet agents. ASA Grade Assessment: II - A patient with mild systemic disease. After reviewing the risks and benefits, the patient was deemed in satisfactory condition to undergo the procedure. The anesthesia plan was to use moderate sedation / analgesia (conscious sedation). Immediately prior to administration of medications, the patient was re-assessed for adequacy to receive sedatives. The heart rate, respiratory rate, oxygen saturations, blood pressure, adequacy of pulmonary ventilation, and response to care were monitored throughout the procedure. The physical status of the patient was re-assessed after the procedure. After I obtained informed consent, the scope was passed under direct vision. Throughout the procedure, the patient's blood pressure, pulse, and oxygen saturations were monitored continuously. The pediatric colonoscope was introduced through the anus and advanced to the terminal ileum, with identification of the appendiceal orifice and IC valve. The colonoscopy was performed without difficulty. The patient tolerated the procedure well. The quality of the bowel preparation was good. Moderate Sedation: Moderate (conscious) sedation was administered by the endoscopy nurse and supervised by the endoscopist. The patient's oxygen saturation, heart rate, blood pressure and response to care were monitored. Total physician intraservice time was 15 minutes. Scope In: 7:14:24 AM Scope Withdrawal Time 0 hours 11 minutes 15 seconds Scope Out: 7:31:50 AM Total Procedure Duration Time 0 hours 17 minutes 26 seconds Findings: The perianal and digital rectal examinations were normal. A few small-mouthed diverticula were found in the sigmoid colon. A 5 mm polyp was found in the sigmoid colon. The polyp was sessile. The polyp was removed with a cold snare. Resection and retrieval were complete. Verification of patient identification for the specimen was done. Estimated blood loss was minimal. The exam was otherwise without abnormality on direct and retroflexion views. Non-bleeding internal hemorrhoids were found during retroflexion. The hemorrhoids were Grade I (internal hemorrhoids that do not prolapse). Impression: - Diverticulosis in the sigmoid colon. - One 5 mm polyp in the sigmoid colon, removed with a cold snare. Resected and retrieved. - The examination was otherwise normal on direct and retroflexion views. Recommendation: - Discharge patient to home. - Resume previous diet. - Continue present medications. - Await pathology results. - Repeat colonoscopy in 5 years for surveillance. Procedure Code(s): --- Professional --- 85222, Colonoscopy, flexible; with removal of tumor(s), polyp(s), or other lesion(s) by snare technique G0500, Moderate sedation services provided by the same physician or other qualified health memory care program director performing a gastrointestinal endoscopic service that sedation supports, requiring the presence of an independent trained observer to assist in the monitoring of the patient's level of consciousness and physiological status; initial 15 minutes of intra-service time; patient age 5 years or older (additional time may be reported with 97969, as appropriate) CPT copyright 2017 [employer]. All rights reserved. The codes documented in this report are preliminary and upon information coder review may be revised to meet current compliance requirements. Nirmal Solis DO 11/30/2021 7:39:56 AM This report has been signed electronically. Number of Addenda: 1 Note Initiated On: 11/30/2021 7:02 AM Addendum Number: 1 Addendum Date: 05/10/2022 6:29:44 AM MAC was used as sedation for this procedure. Nirmal Solis DO 05/10/2022 6:29:48 AM This report has been signed electronically.
== END 2021-11-30 23:59 | disposition home or self-care (01) ==
LOC: EN 05:55 → AC 05:57
PROVIDERS: PCP Family Medicine; Referring Provider Family Medicine; Visit Provider Internal Medicine Gastroenterology
PROC: 0DJD8ZZ Inspection of Lower Intestinal Tract, Via Natural or Artificial Opening Endoscopic (ICD-10-PCS; CPT 45378; principal; 2021-11-30 06:55)
DX: Z12.11 Encounter for screening for malignant neoplasm of colon (principal); D12.5 Benign neoplasm of sigmoid colon; K57.30 Diverticulosis of large intestine without perforation or abscess without bleeding; K64.0 First degree hemorrhoids; I10 Essential (primary) hypertension; E78.5 Hyperlipidemia, unspecified; J45.909 Unspecified asthma, uncomplicated; K21.9 Gastro-esophageal reflux disease without esophagitis; E66.9 Obesity, unspecified; Z78.0 Asymptomatic menopausal state; Z86.79 Personal history of other diseases of the circulatory system; Z68.34 Body mass index [BMI] 34.0-34.9, adult; Z79.899 Other long term (current) drug therapy
CPT/HCPCS: 45385; 88305; J7120; J2405

== ENCOUNTER → 2022-02-22 | Outpatient (CLI) | payer BC, SELFPAY ==
--- NOTE | 2022-02-22 14:46 | BI_ITS ---
MAMMOGRAPHY - BILATERAL SCREENING REASON FOR EXAM: Female, 66 years old. Routine annual screening examination. PERTINENT HISTORY: Sister with breast cancer. Grandmother with breast cancer. TECHNIQUE: Digital bilateral breast marlo (3D mammographic acquisition) in the CC and MLO projections. 2-D mediolateral oblique (MLO) and craniocaudad (CC) views of both breasts were obtained. CAD: Full Field Digital Mammography with Computer Added Detection was performed. COMPARISON: Comparison is made with prior study dated 02/02/2021 and 02/07/2021. FINDINGS: Breast Composition: The breasts are heterogeneously dense, which may obscure small masses. 1.3 cm focal area of architectural distortion in the central retroareolar region of the right breast. Correlation with ultrasound is recommended. No other significant abnormalities are identified. BI/SCRN MAMM (CAD)W/MARLO BILAT IMPRESSION: 1.3 cm focal area of architectural distortion in the central retroareolar region of the right breast. Correlation with ultrasound is recommended. ASSESSMENT CATEGORY: BIRADS Category 0: Incomplete. Need additional imaging evaluation. A letter regarding these results will be sent to the patient by the facility within 30 days. Approximately 10% of breast cancers are not detected by mammography. A normal mammogram should not delay biopsy of a clinically suspicious abnormality. [id number] Electronically Signed: Jose Luis Li MD at 15:35 EDT ,
== END | disposition home or self-care (01) ==
LOC: OPBI 14:44
PROVIDERS: PCP Family Medicine; Visit Provider Family Medicine
DX: Z12.31 Encounter for screening mammogram for malignant neoplasm of breast (principal)
CPT/HCPCS: 77063; 77067

== ENCOUNTER → 2022-02-26 | Outpatient (CLI) | payer BC, SELFPAY ==
--- NOTE | 2022-02-26 13:27 | US_ITS ---
STUDY: ULTRASOUND BREAST - RIGHT REASON FOR EXAM: Female, 66 years old. Abnormal screening mammogram. TECHNIQUE: Axial and longitudinal images of the RIGHT breast were performed with a high resolution ultrasound transducer. # OF IMAGES: 20 COMPARISON: Comparison is made with prior mammogram dated 02/22/2022. FINDINGS: RIGHT Breast: In the retroareolar region of the right breast, there is a 1.7 cm x 1.3 cm x 1.4 cm hypoechoic spiculated solid nodule with increased vascularity within the nodular density. Biopsy recommended. US/Breast Limited Unilateral IMPRESSION: 1.7 cm x 1.3 cm x 1.4 cm hypoechoic spiculated nodule in the retroareolar region of the right breast. Biopsy recommended. ASSESSMENT CATEGORY: BIRADS Category 5: Highly Suggestive of Malignancy - Appropriate Action Should Be Taken. A letter regarding these results will be sent to the patient by the facility within 30 days. Electronically Signed: Jose Luis Li MD at 14:12 EDT ,
== END | disposition home or self-care (01) ==
LOC: OPUS 13:24
PROVIDERS: PCP Family Medicine; Visit Provider Family Medicine
DX: R92.8 Other abnormal and inconclusive findings on diagnostic imaging of breast (principal)
CPT/HCPCS: 76642

== ENCOUNTER → 2022-03-01 | Outpatient (CLI) | payer BC, SELFPAY ==
--- NOTE | 2022-03-01 | IMM_PTH ---
PATIENT: ALVIN PATEL LOC: [facility] U#:[id number] AGE/SX: 66/F ROOM: RE03/01/[address]: Dr. Holland Odell MD : 1955 BED: DIS: 03/01/2022 SPEC #: [id number] RECD: 03/05/22 12:20 STATUS: PARAMJIT REQ #: [id number] LAYO: 03/01/22 00:[address]: Holland Odell DEPT: IMMUNOHISTOCHEMISTRY RECD BY: Liana Lenz ENTERED: 03/05/22 12:21 SP TYPE: IMMUNO OTHR DR: Dr. William Feldman MD Tissues: Right breast, NOS Procedures: CALPONIN-1 (add) CK5-6 (add) CK8 (add) RHODES-2 (add) E-CAD (add) HER2 ILEANA (add) KI-67 (add) P53 (add) CA (add) P40 (add) ER (initial) PHYSICIAN & [address] [address] SPECIMEN INFORMATION: Tissue Source: Right breast Clinical Info: Abnormal right breast ultrasound Specimen Number: [id number] CPT code: 88286, 22175 x7, 25668 x3 METHODOLOGY: Deparaffinized sections of prefer/formalin-fixed tissue or PAP/DQ stained slides are incubated with monoclonal/polyclonal antibodies/oligonucleotide probes. Localization is made via biotin free immunoperoxidase method. Appropriate controls are performed and reacted as expected. Results on target cell population are indicated in the following table: RESULTS: ANTIBODY / CLONE RESULT P53 (DO-7) positive, 40%, dim Ki-67 (30-9) positive,60% CK8 (63ivetQ19) positive CK5-6 (D5 & 1684) negative Calponin-1 (QM648Z) negative P40 (BC28) negative E-Cad (ECH-6) positive RHODES-2 (SP21) positive, dim MORPHOMETRIC ANALYSIS ER (clone 6F11) >95%, strong CA (clone 16/1E2) >95%, strong Her-2Neu (clone CB11) 0-1+ The prognostic test for HER2 is performed on formalin-fixed paraffin embedded tissue. A 3+ (positive) staining pattern is defined as intense, homogeneous, complete, circumferential membranous staining in >10% of contiguous tumor cells. A similar weak (2+) staining pattern is interpreted as equivocal. NICKOLAS follow-up testing is recommended for all equivocal cases. Positivity/negativity for ER/CA is reported if > or < 1% of the tumor cells are immuno- reactive, respectively. The ASCO/CAP criteria is used for scoring. Reference: Journal of Clinical Oncology, 2013; 31:8147-3172 & 2010; 16:1032-8058. Duration of fixation: 7 Hrs; Sample Adequate: Yes. These assays have not been validated on decalcified tissues. Results should be interpreted with caution given the likelihood of false negativity on decalcified specimens. These tests were developed and their performance characteristics determined by [facility]. They may not have been cleared or approved by the U.S. Food and Drug Administration. The FDA has determined that such clearance or approval is not necessary. The above immunohistochemical/dualISH markers are ordered and reviewed by the Pathologist. INTERPRETATION: Right breast, core biopsy: Invasive ductal carcinoma. Positive for estrogen receptors (favorable prognostic indicator). Positive for progesterone receptors (favorable prognostic indicator). Negative for overexpression of TEN8lwu. AM:sam 03/06/2022
--- NOTE | 2022-03-01 12:40 | BRBX_PTH ---
PATIENT: ALVIN PATEL LOC: [facility] U#:[id number] AGE/SX: 66/F ROOM: RE03/01/[address]: Dr. Holland Odell MD : 1955 BED: DIS: 03/01/2022 SPEC #: [id number] RECD: 03/01/22 13:54 STATUS: PARAMJIT REKeyona #: [id number] LAYO: 03/01/22 12:[address]: Holland Odell DEPT: SURGICAL PATHOLOGY RECD BY: Lillian Leavitt ENTERED: 03/02/22 08:04 SP TYPE: BREAST BX OTHR DR: Dr. William Feldman MD Tissues: Right breast, NOS Procedures: Surgery Specimen Level IV HEADER OPERATION: Right breast biopsy PRE-OP DIAGNOSIS: Abnormal right breast ultrasound TISSUE SUBMITTED: Right breast tissue MICROSCOPIC DIAGNOSIS Right breast, core biopsy: Invasive ductal carcinoma with the following characteristics: Maximal length ? 6 millimeters Nuclear grade ? 2/3 See comment. AM:sam 03/05/2022 COMMENT Immunohistochemistry ([id number]) supports the above diagnosis. Case has been reviewed in consultation with Dr. Forte who concurs with the above diagnosis. IDC:SJ MICROSCOPIC DESCRIPTION Slides are reviewed. GROSS DESCRIPTION Received in fixative is one container labeled with the patient's name and designated right breast. The specimen consists of two elongated cores of estrada tissue. Each core has an average length of 1 cm and average diameter of 0.1 cm. The specimen is totally submitted in one cassette. / AM:sam 03/02/2022 TC:0 CPT: 73723 ADDENDUM ADDENDUM ADDENDUM ADDENDUM ADDENDUM ADDENDUM ADDENDUM ADDENDUM ADDENDUM ADDENDUM ADDENDUM 10/18/2022 10:40 ADDENDUM 10/18/2022 10:40 ADDENDUM 10/18/2022 10:40 ADDENDUM 10/18/2022 10:40 ADDENDUM 10/18/2022 10:40 This addendum is added to incorporate an outside pathology consultation report. The case was examined at [facility] (#[id number]) and the following diagnosis was rendered. Right breast, core biopsy: Invasive ductal carcinoma, provisional Samara grade 2, measuring 6 mm in greatest dimension. Please see complete above mentioned consultation report in EMR
== END | disposition home or self-care (01) ==
LOC: LABSPEC 13:59
PROVIDERS: PCP Family Medicine; Visit Provider Surgery
DX: R92.8 Other abnormal and inconclusive findings on diagnostic imaging of breast (principal)
CPT/HCPCS: 88305; 88341; 88342

== ENCOUNTER → 2022-08-08 | Outpatient (CLI) | payer BC, SELFPAY ==
[2022-08-17 17:26] LABS: HPV APTIMA, High Risk Negative (Negative)
== END | disposition home or self-care (01) ==
LOC: LABSPEC 15:16
PROVIDERS: PCP Family Medicine; Visit Provider Student in an Organized Health Care Education/Training Program
DX: Z12.4 Encounter for screening for malignant neoplasm of cervix (principal)
CPT/HCPCS: 87624; 88175; G0145

== ENCOUNTER → 2022-08-22 | Outpatient (CLI) | payer BC, SELFPAY ==
--- NOTE | 2022-08-22 15:26 | BD_ITS ---
STUDY: DUAL ENERGY X-RAY ABSORPTIOMETRY / DXA REASON FOR EXAM: Female, 67 years old. [id number] TECHNIQUE: Bone Mineral Density (BMD) measurements of lumbar spine and bilateral hips were obtained. COMPARISON: None. FINDINGS: Lumbar Spine (L1-L4): g/cm2 (0.941) / T-score (-0.9) / Z-score (0.9) Findings are suggestive of normal bone density with a low fracture risk. Left Femur Total: g/cm2 (0.737) / T-score (-1.7) / Z-score (-0.4) Left Femoral Neck: g/cm2 (0.575) / T-score (-2.5) / Z-score (-0.9) Right Femur Total: g/cm2 (0.740) / T-score (-1.7) / Z-score (-0.4) Right Femoral Neck: g/cm2 (0.566) / T-score (-2.5) / Z-score (-1.0) BD/Dexa Bone Density Study IMPRESSION: The patient is considered osteoporotic as outlined below according to World [employer] Organization (WHO) criteria with a high fracture risk. Reference Information: The T-score is the number of standard deviations above or below the standard which is normal for young adults at their peak bone mineral density. The World Health Organization (WHO) interprets the T-scores as follows: Above -1 Normal bone density Between -1 and -2.5 Osteopenia Equal to / or below -2.5 Osteoporosis As a practical clinical guideline, osteopenia may be graded as follows: Mild -1 through -1.5 Moderate -1.6 through -2.0 Severe -2.1 through -2.4 The Z-score is the number of standard deviations above or below age-matched controls. A Z-score of less than -1.5 would be considered abnormal. References: 1. NIH Osteoporosis and Related Bone Diseases www osteo.org 2. International Society for Clinical Densitometry www iscd.org 3. National Osteoporosis Foundation www nof.org Electronically Signed: Jose Luis Li MD at 8:43 EST ,
== END | disposition home or self-care (01) ==
LOC: OPBD 15:15
PROVIDERS: PCP Family Medicine; Visit Provider Student in an Organized Health Care Education/Training Program
DX: N95.9 Unspecified menopausal and perimenopausal disorder (principal)
CPT/HCPCS: 77080

== ENCOUNTER 2022-09-28 13:10 | Emergency (ER) | payer BC, SELFPAY ==
[2022-09-28 13:12] VITALS: BP 153/95; PULSE 76; RESP 14; TEMP 36.6; O2SAT 100; BMI 35.9
--- NOTE | 2022-09-28 14:51 | EX.ED.DYSGE1 ---
HPI History of Present Illness Chief Complaint: Wound Informant: patient Narrative Narrative: Patient presents with bleeding from the right breast. She had a right-sided mastectomy in April of last year for breast cancer. She had reconstructive surgery with a spacer placed. She developed a hematoma that was drained in the office about a week ago. She was seen in the office on Saturday the and the drain was removed. She still wore a compressive dressing until yesterday. She was seen in the office yesterday and everything looked well so compressive dressing was removed. Patient states today she started bleeding from the drain site and has bled through multiple dressings. [facility] Medical History Alcohol use Arthritis Asthma Back pain Cardiology follow-up encounter Gastric reflux High cholesterol History of CHF (congestive heart failure) History of echocardiogram History of hiatal hernia History of irregular heartbeat History of stress test Hypertension Leg cramps Migraine headache Non-smoker Paroxysmal tachycardia Post-menopausal Shortness of breath on exertion TIA (transient ischemic attack) Home Medications atorvastatin 20 mg tablet 20 mg PO QHS 04/14/18 [History Last Taken Unknown] cholecalciferol (vitamin D3) 25 mcg (1,000 unit) tablet (Vitamin D3) 1,000 unit PO DAILY 04/14/18 [History Last Taken Unknown] fexofenadine 180 mg tablet (Chastity Allergy) 90 mg PO QHS 04/14/18 [History Last Taken Unknown] magnesium 30 mg tablet 250 mg PO BID 04/14/18 [History Last Taken Unknown] metoprolol succinate 50 mg tablet,extended release 24 hr (Toprol XL) 50 mg PO QHS 04/14/18 [History Last Taken Unknown] montelukast 10 mg tablet 10 mg PO DAILY 04/14/18 [History Last Taken Unknown] spironolactone 25 mg tablet 100 mg PO DAILY 04/14/18 [History Last Taken Unknown] pantoprazole 40 mg tablet,delayed release 40 mg PO DAILY 11/28/21 [History Last Taken Unknown] bupropion HCl 150 mg tablet,12 hr sustained-release 150 mg PO BID 11/30/21 [History Last Taken Unknown] Allergy/AdvReac Type Severity Reaction Status Date / Time lisinopril Allergy Other Verified 09/28/22 13:12 Penicillins [PCN] Allergy Hives Verified 09/28/22 13:12 Surgical History History of cardiac catheterization History of right breast biopsy (~02/2022) Hx of colonoscopy Hx of foot surgery Hx of knee surgery Social History Smoking Status: Never smoker alcohol intake: current alcohol intake frequency: holidays/special occasions only substance use type: does not use ROS ROS ED Constitutional Constitutional ED: Denies chills or fever(s) Eyes Eyes: Denies change in vision or discharge from eye(s) ENT ENT ED: Denies discharge from eye(s), rhinorrhea or sore throat Cardiovascular Cardiovascular: Denies chest pain or palpitations Respiratory/Chest Respiratory/Chest: Denies cough or dyspnea Gastrointestinal Gastrointestinal: Denies abdominal pain, diarrhea, nausea or vomiting Genitourinary Genitourinary ED: Denies difficulty urinating or dysuria Musculoskeletal Musculoskeletal: Denies back pain or extremity pain Integumentary Reports other Details: Bleeding from drain site right breast ; Denies Abrasions or rash Neurologic Neurologic: Denies headache(s) or weakness Psychiatric Psychiatric: Denies anxiety or depression Allergic/Immunologic Allergic/Immunologic ED: Denies lip swelling or urticaria EXAM Physical Exam Const Vital Signs: 09/28/22 13:12 Temperature 98 F Temperature Source Temporal Pulse Rate 76 Respiratory Rate 14 Blood Pressure 153/95 H Blood Pressure Mean 114 Pulse Ox 100 Oxygen Delivery Method Room Air Positive well nourished and well developed General Appearance ED: well developed HEENT Reports normocephalic and head/scalp atraumatic Eyes PERRL and EOMs intact bilaterally Neck supple Chest Wall Chest Narrative: Pressure dressing removed from the right breast. Minimal bleeding if any at this time. No ecchymosis noted. No erythema or sign of infection. Resp normal respiratory effort and clear to auscultation bilaterally Cardio regular rate and regular rhythm GI normal to inspection, nondistended, normoactive bowel sounds Palpation: soft Extremity normal to inspection Neuro oriented x3 and no sensory deficits noted Sensorium / Orientation: alert Motor Exam: strength 5/5 throughout Psych mental status grossly normal MDM MDM MDM Narrative Medical decision making narrative: Right breast was scanned with ultrasound at bedside. There is only a small amount of fluid exterior to the stock sheets cleaner inspector that is in place. My suspicion is that she reaccumulated her hematoma when the compressive dressing was stopped yesterday. This then bled through the drain site today. At this time it seems to be decompressed. Pressure dressing will be reapplied over the breast site itself and she will be wrapped with an Raj wrap. She will follow-up with her surgeon next week. Discharge Plan Triage Chief Complaint: Wound ED Provider: Adri Betancourt Dx/Rx/DC Orders Clinical Impression: Encounter for post surgical wound check Instructions: ED Post Op Wound Check, Bleeding Prescriptions: No Action atorvastatin 20 MG tablet 20 mg PO QHS metoprolol succinate [Toprol XL] 50 MG tablet extended release 24 hr 50 mg PO QHS fexofenadine [Chastity Allergy] 180 MG tablet 90 mg PO QHS spironolactone 25 MG tablet 100 mg PO DAILY montelukast 10 MG tablet 10 mg PO DAILY magnesium 30 MG tablet 250 mg PO BID cholecalciferol (vitamin D3) [Vitamin D3] 1,000 UNIT tablet 1,000 unit PO DAILY Label Comments: ONLY ,,[place] pantoprazole 40 mg tablet,delayed release (DR/EC) 40 mg PO DAILY bupropion HCl 150 mg tablet sustained-release 12 hr 150 mg PO BID Primary Care Provider: William Feldman Referrals: William Feldman MD [Primary Care Provider] - Activity Restrictions/Additional Instructions: Please continue to wear the compressive dressing throughout the weekend. Follow-up with your surgeon next week. Disposition Disposition: Home, Self Care
== END 2022-09-28 15:19 | disposition home or self-care (01) ==
LOC: ED 15:01
PROVIDERS: Emergency Provider Emergency Medicine; PCP Family Medicine; Visit Provider Emergency Medicine
DX: Z48.00 Encounter for change or removal of nonsurgical wound dressing (principal); I50.9 Heart failure, unspecified; Z86.73 Personal history of transient ischemic attack (TIA), and cerebral infarction without residual deficits
CPT/HCPCS: 99282

== ENCOUNTER 2022-10-04 15:00 | Outpatient (RCR) | payer BC, SELFPAY ==
--- NOTE | 2022-09-10 16:16 | HP.PTEVAL_ITS ---
Patient's Visit Information ALVIN PATEL is a 67 year old F referred to Physical Therapy by Dr. William Feldman MD with a diagnosis of Osteoporosis. Date of Evaluation: 09/10/22 Physical Therapist: BRADY Hawk - Visit Plan Frequency: 2x /Week Duration: 3 Months - Subjective Pt was dx with osteoporosis and Dr Feldman sent her here. She recently had mastectomy and just finished radiation the first of Aug and was told she has osteoporosis severe. She is doing a reconstruction. She is still working and has not tried a bra. She sees her surgeon up in [place] this week. Dr Feldman wants 6-12 weeks of PT. She wont have reconstruction until Fall. She has Osteoporosis in B hips. She has some heart issues and gets out of breath. She has no lifting reconstruction. She feels her balance is good. She is driving. She would like to lose weight and not be so out of breath. She feels like her throat tightens up just walking around doing the FGA... 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 She does have back pain that comes and goes. She can not get massages now cause she can not lay on her stomach. - Pain R Reconstruction area Pain Intensity (Out of 10): 1 Comment: sore - Objective Gait: Walks with increase veering. She does not have a lot of knee flexion. She does not have a lot of heel strike or DF. Stairs: NT but pt says she needs to go up and down 2 feet to a stair. LE MMT: R hip flex 9.3# and L hip flex 8.4#. R knee ext 19.6# and L knee ext 19.2#. R knee flex 15# and L knee flex 12.8#R. hip abd 12.2 and L 13.6. Posture: Rounded shoulders, flexed trunk. FGA: 12 - Balance/Special Test Scores Functional Gait Assessment Score: 12 % Disability: 60.0000 Lower Extremity Functional Score: 44 - Goals Goal 1:: I HEP for osteoporosis weight bearing exercises and posture Goal Time Frame: 8-12 Weeks Goal 2:: Be able to go up and down the stairs recip with 1 hand rail Goal Time Frame: 8-12 Weeks Goal 3:: Be able to walk from the parking lot back to PT without getting SOB Goal Time Frame: 8-12 Weeks Goal 4:: Decrease her fall risk by increasing her FGA score (score or 12 on eval) - Rehabilitation Potential Rehabilitation Potential: Good - Anticipated Interventions Patient/Client Instruction: Educate patient on: Condition, Plan of Care For the Purpose of:: To increase ROM, To improve nutrient delivery to tissue, To improve muscle performance and motor function, To improve ability to perform ADL's, To increase tolerance to activity/condition/position, To improve performance and independence with ADL's, To decrease level of supervision to perform tasks, To improve ability of physical actions for home/community/work/leisure, To improve gait and locomotor functions, To improve health of tissue, To decrease soft tissue restriction, To increase flexibility/ROM, To improve endurance, To improve balance, To improve safety with gait Therapeutic Exercise to Include: Strength training, Endurance training, Balance training, Body mechanics, Postural training, Flexibilty training, Gait and locomotor training, Neuromotor development, Passive ROM, Active ROM, Dynamic Lumbar Stabilization, Scapular Strength/Stabilization For the Purpose of:: To decrease pain, To increase ROM, To improve nutrient delivery to tissue, To increase oxygenation perfusion, To improve muscle performance and motor function, To improve ability to perform ADL's, To increase tolerance to activity/condition/position, To improve performance and independence with ADL's, To decrease level of supervision to perform tasks, To improve ability of physical actions for home/community/work/leisure, To improve gait and locomotor functions, To improve health of tissue, To decrease soft tissue restriction, To increase flexibility/ROM, To improve endurance, To improve balance, To improve safety with gait Functional Training to Include: Gait training For the Purpose of:: To improve gait and locomotor functions, To improve balance, To improve safety with gait Manual Therapy Techniques to Include: Passive ROM, Soft tissue mobilization For the Purpose of:: To increase ROM, To improve nutrient delivery to tissue, To improve gait and locomotor functions, To improve health of tissue, To decrease soft tissue restriction, To increase flexibility/ROM, To improve safety with gait Thank you for the opportunity to evaluate your patient. For Medicare and Medicare HMO plans, please review the plan of care and approve it. It will need to be FAXED BACK to us at [phone] for Medicare purposes. For Medicare only, by signing this I certify the plan of care. Please let me know if there are questions or concerns regarding this plan of care. Physician Signature: Date:
--- NOTE | 2023-02-20 16:10 | HP.PT.NRP ---
Patient Information Patient Information: ALVIN PATEL was seen in my office for initial evaluation on 09/10/22. The following Plan of Care was established for this patient: POC Established Initial Frequency: 2x /Week Initial Duration: 3 Months Anticipated Interventions Patient/Client Instruction: Educate patient on: Condition and Plan of Care For the Purpose of:: To increase ROM, To improve nutrient delivery to tissue, To improve muscle performance and motor function, To improve ability to perform ADL's, To increase tolerance to activity/condition/position, To improve performance and independence with ADL's, To decrease level of supervision to perform tasks, To improve ability of physical actions for home/community/work/leisure, To improve gait and locomotor functions, To improve health of tissue, To decrease soft tissue restriction, To increase flexibility/ROM, To improve endurance, To improve balance and To improve safety with gait Therapeutic Exercise to Include: Strength training, Endurance training, Balance training, Body mechanics, Postural training, Flexibilty training, Gait and locomotor training, Neuromotor development, Passive ROM, Active ROM, Dynamic Lumbar Stabilization and Scapular Strength/Stabilization For the Purpose of:: To decrease pain, To increase ROM, To improve nutrient delivery to tissue, To increase oxygenation perfusion, To improve muscle performance and motor function, To improve ability to perform ADL's, To increase tolerance to activity/condition/position, To improve performance and independence with ADL's, To decrease level of supervision to perform tasks, To improve ability of physical actions for home/community/work/leisure, To improve gait and locomotor functions, To improve health of tissue, To decrease soft tissue restriction, To increase flexibility/ROM, To improve endurance, To improve balance and To improve safety with gait Functional Training to Include: Gait training For the Purpose of:: To improve gait and locomotor functions, To improve balance and To improve safety with gait Manual Therapy Techniques to Include: Passive ROM and Soft tissue mobilization For the Purpose of:: To increase ROM, To improve nutrient delivery to tissue, To improve gait and locomotor functions, To improve health of tissue, To decrease soft tissue restriction, To increase flexibility/ROM and To improve safety with gait Last Seen Last Seen: This patient was last seen in our office 10/04/22. Pertinent comments regarding their Physical therapy will appear below: Pt will be discharged At this point I will be discontinuing this patient from physical therapy. I would be happy to see this patient again in the future if found appropriate by the physician. Thank you! Jesica Lee, BRADY Balance/Gait/Functional tests Balance/Special Test Scores Functional Gait Assessment Score: 12 % Disability: 60.0000 Lower Extremity Functional Score: 44
== END 2022-10-04 19:00 | disposition home or self-care (01) ==
LOC: PT 15:00
PROVIDERS: PCP Family Medicine; Referring Provider Family Medicine; Visit Provider Family Medicine
DX: M81.0 Age-related osteoporosis without current pathological fracture (principal)
CPT/HCPCS: 97110; 97162

== ENCOUNTER → 2023-03-25 | Outpatient (CLI) | payer BC, SELFPAY ==
--- NOTE | 2023-03-25 11:12 | MRI_ITS ---
INDICATION: possible TIA repeatedly, hx breast CA, ? if mass, aneurysm, or st EXAMINATION: MRA - MRA Head W/O Contrast TECHNIQUE: Routine [place]/brain 3D time of flight MR angiogram protocol was performed without gadolinium. 3D reconstructions were reviewed. IV Contrast Dosage and Agent: None. COMPARISON: January 06, 2021. FINDINGS: --Anterior Circulation: ICAs: No significant stenosis at the intracranial/visualized segments. ACAs: No significant stenosis at the visualized segments. ACOM: Present. MCAs: No significant stenosis at the visualized segments. --Posterior Circulation: PCOMs: Intact bilaterally flour inspector: No significant stenosis at the visualized segments. BASILAR ARTERY: No significant stenosis. VERTEBRAL ARTERIES: Mild left vertebral dominance. No focal stenosis at the intradural/visualized segments. No evidence of intracranial aneurysm or vascular malformation. MRI/MRA Head ONLY without Contrast IMPRESSION: Unremarkable MRA head. Electronically Signed: Cody Sampson MD at 6:39 EDT ,
--- NOTE | 2023-03-25 11:12 | MRI_ITS ---
EXAM: MR HEAD WITHOUT INTRAVENOUS CONTRAST CLINICAL INDICATION: possible TIA repeatedly, hx breast CA, ? if mass, aneurysm, or st TECHNIQUE: Multiplanar and multisequence MR images of the brain were obtained without intravenous contrast. COMPARISON: January 06, 2021 FINDINGS: BRAIN AND EXTRA-AXIAL SPACES: Mild diffuse parenchymal atrophy and mild chronic ischemic small vessel white matter disease.. No intra- or extra-axial hemorrhage. No evidence of acute infarct. No intracranial mass or mass effect. There is preservation of the mesa/white matter interface. Posterior fossa structures are unremarkable. Ventricles are appropriate for age. No hydrocephalus. Basal cisterns are patent. SELLA: Unremarkable. Normal sella turcica, pituitary gland, infundibular stalk, optic chiasm and hypothalamus. AUDITORY SYSTEM: Unremarkable. The internal auditory canals are patent. BONES/JOINTS: Unremarkable. No discrete lytic or blastic abnormalities. SINUSES: Unremarkable as visualized. Clear. MASTOID AIR CELLS: Unremarkable as visualized. Clear. ORBITS: Unremarkable as visualized. Both globes, extraocular muscles, optic nerves and retrobulbar fat appear unremarkable. VASCULATURE: Unremarkable as visualized. Normal flow voids in the major intracranial circulation. MRI/Brain without Contrast IMPRESSION: No intracranial mass. No acute infarct or any other acute disease. Electronically Signed: Mauricio King MD at 19:01 EDT ,
== END | disposition home or self-care (01) ==
LOC: MRI 10:53
PROVIDERS: PCP Family Medicine; Referring Provider Family Medicine; Visit Provider Family Medicine
DX: R29.898 Other symptoms and signs involving the musculoskeletal system (principal)
CPT/HCPCS: 70544; 70551

== ENCOUNTER → 2023-04-03 | Outpatient (CLI) | payer BC, SELFPAY ==
[2023-04-03 12:12] LABS: Absolute Lymphocyte Count 0.91 X10^3/uL (0.83-4.51); Absolute Neutrophil Count 5.1 X10^3/uL (2.0-7.7); Basophil# 0.06 X10^3/uL; Basophil% 0.9 % (0-1); Eosinophil# 0.11 X10^3/uL; Eosinophils% 1.6 % (0-5); Hematocrit 44.1 % (37-47); Hemoglobin 14.5 g/dL (12.0-15.0); Lymphocyte # 0.91 X10^3/ul (0.83-4.51); Lymphocyte % 13.2 % (19-41); Mean Corp Hgb Conc 32.9 g/dL (32-36); Mean Corpuscular Hgb 31.9 pg (27.0-32.0); Mean Corpuscular Volume 96.9 fL (81-99); Monocyte# 0.69 X10^3/uL; NRBC Flagged by Analyzer 0 % (0-5); Neutrophil # 5.12 X10^3/uL (2.7-7.7); Neutrophil % 73.9 % (47-70); Platelet Count 258 K/mm3 (150-450); RBC Distribution Width CV 13.2 % (11.6-14.6); RBC Distribution Width SD 47.3 fl (35.1-43.9); Red Blood Count 4.55 M/mm3 (4.2-5.4); White Blood Count 6.9 K/mm3 (4.4-11.0)
[2023-04-03 12:37] LABS: ALB/GLOB Ratio 0.9 RATIO (0.9-2.4); AST(SGOT) 13 U/L (15-37); Alanine Aminotransfer ALT/SGPT 16 U/L (13-56); Albumin, Serum 3.3 g/dL (3.2-5.0); Alkaline Phosphatase 177 U/L (45-117); Anion Gap 5 (5-15); BUN 8 mg/dL (7-18); BUN/Creat Ratio 10.3 RATIO (10-20); Calcium,Total 9.1 mg/dL (8.5-10.1); Chloride 105 mmol/L (98-107); Creatinine, Serum 0.78 mg/dL (0.55-1.02); EST Glomerular Filtration Rate 79 mL/min (>60); Est Glom Filt Rate - Afr Amer 95 mL/min (>60); Globulin 3.6 g/dL (2.2-4.2); Glucose 99 mg/dL (74-106); Protein, Total 6.9 g/dL (6.4-8.2); Sodium Level 134 mmol/L (136-145)
[2023-04-03 12:45] LABS: Vitamin D,25 Hydroxy 54.2 ng/mL
[2023-04-03 13:26] LABS: PTHIN 61.1 pg/mL (18.4-80.1)
== END | disposition home or self-care (01) ==
LOC: MFPLAB 11:13
PROVIDERS: PCP Family Medicine; Visit Provider Family Medicine
DX: M81.0 Age-related osteoporosis without current pathological fracture (principal)
CPT/HCPCS: 36415; 80053; 82306; 83970; 85025

== ENCOUNTER → 2023-06-10 | Outpatient (CLI) | payer BC, SELFPAY ==
[2023-06-10 17:00] LABS: AST(SGOT) 16 U/L (15-37); Alanine Aminotransfer ALT/SGPT 23 U/L (13-56); Albumin, Serum 3.5 g/dL (3.2-5.0); Alkaline Phosphatase 122 U/L (45-117); Bilirubin, Direct 0.33 mg/dL (0.00-0.30); GGTP 17 U/L (5-55); Globulin 3.3 g/dL (2.2-4.2); Lipase 41 U/L (13-75); Protein, Total 6.8 g/dL (6.4-8.2)
== END | disposition home or self-care (01) ==
LOC: MFPLAB 12:01
PROVIDERS: PCP Family Medicine; Visit Provider Family Medicine
DX: R74.8 Abnormal levels of other serum enzymes (principal)
CPT/HCPCS: 36415; 80076; 82977; 83690

== ENCOUNTER → 2023-11-25 | Outpatient (CLI) | payer BC, SELFPAY ==
--- NOTE | 2023-11-25 14:40 | ECHOD_ITS ---
Reason For Study: PHTN Procedure This was a 2D Doppler, Color Flow transthoracic echocardiogram. Myocardial strain analysis was performed in this exam to aid in the assessment of cardiac function. Exam performed in department. Left Ventricle Normal LV size. Left ventricular systolic function is lower limits of normal. Stage 1 diastolic dysfunction. The estimated ejection fraction is 53 %. No regional wall motion abnormalities noted. Right Ventricle Normal RV size. Normal systolic function. Atria Normal left atrium. Normal right atrium. Mitral Valve Normal mitral valve. Mild (1+) eccentric mitral valve insufficiency. Tricuspid Valve Normal tricuspid valve. Mild (1+) tricuspid valve insufficiency. Pulmonary artery systolic pressure is 34 mmHg. Aortic Valve Normal aortic valve. Trisinus/trileaflet aortic valve. Pulmonic Valve Normal pulmonic valve. Great Vessels Normal aortic root. The pulmonary artery is normal size. Inferior vena cava collapse with respiration. Pericardium/Pleural No pericardial effusion. MMode/2D Measurements & Calculations LVIDd: 5.2 cm IVSd: 0.73 cm Ao root diam: 3.3 cm LVIDs: 3.7 cm LVPWd: 0.88 cm LA dimension: 3.7 cm RVDd: 3.8 cm FS: 29.5 % LAV(MOD-bp): 61.8 ml LVAd ap4: 27.5 cm2 SV(MOD-sp4): 41.6 ml LAV(MOD-bp) Indexed: 33.4 ml/m2 LVLd ap4: 7.5 cm LAV(MOD-sp2): 66.7 ml EDV(MOD-sp4): 81.6 ml LAV(MOD-sp4): 52.2 ml EDV(sp4-el): 85.5 ml LVAs ap4: 17.6 cm2 LVLs ap4: 6.5 cm ESV(MOD-sp4): 40.0 ml ESV(sp4-el): 40.7 ml EF(MOD-sp4): 51.0 % EF(sp4-el): 52.4 % SV(sp4-el): 44.8 ml LA A4 area: 18.6 cm2 RA A4 area: 14.6 cm2 TAPSE: 2.4 cm Time Measurements MV dec time: 0.22 sec Doppler Measurements & Calculations MV E max vamshi: 73.0 cm/sec Lat Peak E' Vamshi: 11.2 cm/sec Med Peak E' Vamshi: 8.1 cm/sec MV A max vamshi: 81.9 cm/sec E/E' lat: 6.5 E/E' med: 9.0 MV E/A: 0.89 MV V2 max: 99.9 cm/sec MV P1/2t max vamshi: 97.6 cm/sec Ao V2 max: 136.3 cm/sec MV max P.0 mmHg MV P1/2t: 92.0 msec Ao max P.5 mmHg MV V2 mean: 57.5 cm/sec MV dec slope: 310.7 cm/sec2 Ao V2 mean: 88.7 cm/sec MV mean P.5 mmHg Ao mean P.7 mmHg MV V2 VTI: 33.2 cm MVA(P1/2t): 2.4 cm2 Ao V2 VTI: 30.7 cm AV (velocity ratio): 0.68 LV V1 max: 88.3 cm/sec MR max vamshi: 479.5 cm/sec PA V2 max: 105.3 cm/sec LV V1 max P.1 mmHg MR max P.0 mmHg LV V1 mean P.7 mmHg LV V1 mean: 60.8 cm/sec LV V1 VTI: 20.8 cm TR max vamshi: 275.2 cm/sec TR max P.3 mmHg ECHO/Echo Complete Interpretation Summary Normal LV size. Left ventricular systolic function is lower limits of normal. Stage 1 diastolic dysfunction. Pulmonary artery systolic pressure is 34 mmHg. The estimated ejection fraction is 53 %. The global longitudinal strain is normal. The global longitudinal strain = -18. 2 % (normal). Ordering Physician: William Feldman Referring Physician: William Feldman Performed By: Umesh Zaman RCS
== END | disposition home or self-care (01) ==
LOC: CVS 14:39
PROVIDERS: PCP Family Medicine; Referring Provider Family Medicine; Visit Provider Family Medicine
DX: I27.20 Pulmonary hypertension, unspecified (principal)
CPT/HCPCS: 93306

== ENCOUNTER → 2024-11-16 | Outpatient (CLI) | payer BC, SELFPAY ==
[2024-11-16 18:21] LABS: Absolute Lymphocyte Count 1.46 X10^3/uL (0.83-4.51); Basophil# 0.07 X10^3/uL; Eosinophil# 0.06 X10^3/uL; Eosinophils% 0.8 % (0-5); Hematocrit 45.6 % (37-47); Hemoglobin 15.7 g/dL (12.0-15.0); Lymphocyte # 1.46 X10^3/ul (0.83-4.51); Lymphocyte % 19.8 % (19-41); Mean Corp Hgb Conc 34.4 g/dL (32-36); Mean Corpuscular Hgb 32.8 pg (27.0-32.0); Mean Corpuscular Volume 95.2 fL (81-99); Mean Platelet Vol. 9.8 fl (6.2-12.0); Monocyte# 0.74 X10^3/uL; Monocyte% 10.1 % (0-10); NRBC Flagged by Analyzer 0 % (0-5); Neutrophil # 5.01 X10^3/uL (2.7-7.7); Platelet Count 211 K/mm3 (150-450); RBC Distribution Width CV 11.8 % (11.6-14.6); RBC Distribution Width SD 41.4 fl (35.1-43.9); Red Blood Count 4.79 M/mm3 (4.2-5.4); White Blood Count 7.4 K/mm3 (4.4-11.0)
[2024-11-16 18:45] LABS: Erythrocyte Sedimentation Rate 15 mm/hr (0-30)
[2024-11-16 19:34] LABS: Microalbumin,Random Urine 25.5 mg/L (NO RANGE EST.); Microalbumin:Creatinine Ratio 179.6 mg/g CRE
[2024-11-16 19:41] LABS: ALB/GLOB Ratio 1.6 RATIO (0.9-2.4); AST(SGOT) 21 U/L (<=31); Alanine Aminotransfer ALT/SGPT 16 U/L (<=34); Albumin, Serum 4.1 g/dL (3.4-4.8); Alkaline Phosphatase 115 U/L (35-104); Anion Gap 11 (5-15); BUN 13 mg/dL (4-19); BUN/Creat Ratio 15.1 RATIO (10-20); Carbon Dioxide 22.3 mmol/L (21.0-32.0); Chloride 103 mmol/L (98-108); Creatinine, Serum 0.88 mg/dL (0.70-1.20); EST Glomerular Filtration Rate 72 (>60); Globulin 2.5 g/dL (2.2-4.2); Glucose 100 mg/dL (70-99); Potassium 4.1 mmol/L (3.3-5.1); Protein, Total 6.7 g/dL (5.9-8.4); Sodium Level 137 mmol/L (133-145); Total Bilirubin 1.04 mg/dL (0.00-1.30)
[2024-11-18 14:08] LABS: PROEL- A/G Ratio 1.2 (0.7-1.7); PROEL- Albumin 3.4 g/dL (2.9-4.4); PROEL- Alpha-1 Globulin 0.3 g/dL (0.0-0.4); PROEL- Alpha-2 Globulin 0.9 g/dL (0.4-1.0); PROEL- Beta Globulin 1.2 g/dL (0.7-1.3); PROEL- Gamma Globulin 0.6 g/dL (0.4-1.8); PROEL- Globulin, Total 2.9 g/dL (2.2-3.9); PROEL- TOTAL PROTEIN 6.3 g/dL (6.0-8.5); PROEL-M-Spike Not Observed g/dL (Not Observed)
== END | disposition home or self-care (01) ==
LOC: MFPLAB 16:39
PROVIDERS: PCP Family Medicine; Referring Provider Family Medicine; Visit Provider Family Medicine
DX: I10 Essential (primary) hypertension (principal); R63.4 Abnormal weight loss
CPT/HCPCS: 36415; 80053; 82043; 82570; 84165; 84439; 84443; 85025; 85652